=== PATIENT | female | born 1970 | race Caucasian/White ===

== ENCOUNTER → 2019-06-27 | Outpatient (CLI) | payer BC ==
[2019-06-27 11:22] LABS: Basophils % (A) 1 %; Eosinophils # (A) 0.3 k/uL (0-0.7); Eosinophils % (A) 5 %; HCT 35.6 % (34.0-46.0); HGB 11.7 gm/dL (11.4-16.0); Lymphocytes # (A) 1.6 k/uL (1.0-4.8); Lymphocytes % (A) 23 %; MCH 28.6 pg (25.0-35.0); MCV 86.7 fL (80.0-100.0); Mean Platelet Volume 6.4; Monocytes # (A) 0.6 k/uL (0-1.0); Monocytes % (A) 8 %; Neutrophils # (A) 4.4 k/uL (1.3-7.7); Neutrophils % (A) 62 %; Platelet Count 308 k/uL (150-450); RBC 4.11 m/uL (3.80-5.40); RDW 14.6 % (11.5-15.5); WBC 7.1 k/uL (3.8-10.6)
[2019-06-27 11:51] LABS: African American GFR (CKD) >90 (>60 ml/min/1.73 sqM); Anion Gap 7 mmol/L; Blood Urea Nitrogen 18 mg/dL (7-17); Carbon Dioxide 26 mmol/L (22-30); Chloride 106 mmol/L (98-107); Glucose 101 mg/dL (74-99); Potassium 4.2 mmol/L (3.5-5.1); Sodium 139 mmol/L (137-145)
== END | disposition home or self-care (01) ==
LOC: LABPAT 10:44
PROVIDERS: ATTEND Obstetrics & Gynecology
DX: Z01.812 Encounter for preprocedural laboratory examination (principal); D25.1 Intramural leiomyoma of uterus; N92.0 Excessive and frequent menstruation with regular cycle
CPT/HCPCS: 36415; 80051; 82565; 82947; 84520; 85025; 87086

== ENCOUNTER 2019-07-04 05:54 | Inpatient (IN) | payer BC ==
[2019-07-04] MEDS ORDERED: ONDANSETRON 4 MG/2 ML VIAL IVP ONE (06:02)
[2019-07-04] MEDS ORDERED: DEXAMETHASONE SOD PHOSPHATE 10 MG/ML 1 ML VIAL IV ONE (06:02)
[2019-07-04] MEDS ORDERED: MIDAZOLAM 2 MG/2 ML VIAL IV PRN (06:02)
[2019-07-04] MEDS ORDERED: SCOPOLAMINE 1.5MG/72HR PATCH TRANSDERM ONE (06:02)
[2019-07-04] MEDS ORDERED: HYDROmorphone 0.5 MG/0.5 ML SYRINGE IVP PRN ×2 (06:02→07:15)
[2019-07-04] MEDS ORDERED: LACTATED RINGERS 1,000 ML IV SCH ×2 (06:02→09:45)
[2019-07-04] MEDS ORDERED: LIDOCAINE 1% 20 ML VIAL (10MG/ML) FOR IV START INTRADERMA ONE (06:35)
[2019-07-04] MEDS ORDERED: MIDAZOLAM 2 MG/2 ML VIAL IV ONE (06:52)
[2019-07-04] MEDS ORDERED: fentaNYL (PF) 50 MCG/ML 2 ML AMP IV ONE (06:52)
[2019-07-04] MEDS ORDERED: ONDANSETRON 4 MG/2 ML VIAL IVP PRN (07:15)
[2019-07-04] MEDS ORDERED: NALOXONE 0.4 MG/ML 1 ML VIAL IV PRN (07:15)
[2019-07-04] MEDS ORDERED: KETOROLAC 30 MG/ML 1 ML VIAL IVP PRN (07:15)
[2019-07-04] MEDS ORDERED: diphenhydrAMINE 50 MG/ML 1 ML VIAL IVP PRN (07:15)
[2019-07-04] MEDS ORDERED: MORPHINE SULFATE (PF) 0.3 MG/0.3 ML SYR ONE (07:31)
[2019-07-04] MEDS ORDERED: PROPOFOL 10 MG/ML 20 ML VIAL IV ONE (07:31)
[2019-07-04] MEDS ORDERED: MIDAZOLAM 2 MG/2 ML VIAL ONE (07:31)
[2019-07-04] MEDS ORDERED: GLYCOPYRROLATE 0.2 MG/ML 2 ML VIAL ONE (07:31)
[2019-07-04] MEDS ORDERED: ROCURONIUM BROMIDE 10 MG/ML 10 ML VIAL IV ONE (07:31)
[2019-07-04] MEDS ORDERED: fentaNYL (PF) 50 MCG/ML 2 ML AMP ONE (07:31)
[2019-07-04] MEDS ORDERED: LIDOCAINE 1% INJ 10MG/ML (20 ML MDV) ONE (07:31)
[2019-07-04] MEDS ORDERED: PHENYLEPHRINE-0.9% NACL SYG 1 MG/10 ML SYRINGE ONE (07:31)
[2019-07-04] MEDS ORDERED: SUCCINYLCHOLINE CHLORIDE 100 MG/5 ML SYR IV ONE (07:31)
--- NOTE | 2019-07-04 07:45 | P.HPOB ---
History of Present Illness H&P Date: 07/04/19 Chief Complaint: Large symptomatic fibroid uterus The patient is a 48-year-old 3 para 2012 admitted with finding of a very large, approximately 16-18 week size irregular fibroid uterus. This has led to a fairly significant amount of menorrhagia. Ultrasound documents multiple large fibroids with one very large and present on the fundus. She was offered a number of different options for management including hysterectomy and ultimately has opted for hysterectomy which is indicated solely given the size of the uterus. She was offered Lupron in order to attempt to shrink the uterus and make it more amenable to a da Jose Raul approach but declined in favor proceeding with open total abdominal hysterectomy. She does have a history of 2 previous sections. Obstetrical history: 3 para 2012 with 2 deliveries at term and one early miscarriage method of contraception has been control pills. Gynecologic history: Unremarkable with no history of any infections to include STDs. Review of Systems Review of systems is confined to history of present illness. Past Medical History Past Medical History: No Reported History History of Any Multi-Drug Resistant Organisms: None Reported Past Surgical History: Section Past Anesthesia/Blood Transfusion Reactions: No Reported Reaction Past Psychological History: No Psychological Hx Reported Smoking Status: Current every day smoker Past Alcohol Use History: Rare Past Drug Use History: None Reported - Past Family History Mother Additional Family Medical History / Comment(s): multiple myeloma Father Family Medical History: Deep Vein Thrombosis (DVT), Pulmonary Embolus Additional Family Medical History / Comment(s): Medications and Allergies Home Medications Medication Instructions Recorded Confirmed Type No Known Home Medications 06/27/19 07/04/19 History Allergies Allergy/AdvReac Type Severity Reaction Status Date / Time No Known Allergies Allergy Verified 07/04/19 06:18 Exam Vital Signs Temp Pulse Resp BP Pulse Ox 07/04/19 07:08 72 16 104/55 99 07/04/19 06:20 98.4 F 70 18 133/60 98 Intake and Output 07/03/19 07/04/19 07/04/19 22:59 06:59 14:59 Intake Total 300 Balance 300 Intake: IV 300 Other: Weight 90.265 kg In general, this is a well-developed, well-nourished white female in no acute distress. Her heart has a regular rhythm and rate without murmur. Her lungs are clear to auscultation bilaterally in all bur[place]. Her abdomen is nondistended, has normal active bowel sounds, soft, nontender, and with a palpable mass approximately 3 cm below the umbilicus consistent with a large fibroid uterus. Her extremities without any cyanosis, clubbing, or edema and are nontender to palpation. Bimanual examination confirms the above findings with normal external genitalia and BUS with normal vaginal mucosa and cervix to palpation. Uterus is approximate 16-18 weeks in size, very irregular in shape and somewhat mobile. The adnexa are normal and nontender without mass bilaterally. Assessment and Plan (1) Menorrhagia Current Visit: Yes Status: Acute Code(s): N92.0 - EXCESSIVE AND FREQUENT MENSTRUATION WITH REGULAR CYCLE SNOMED Code(s): 864797491 (2) Fibroid uterus Current Visit: Yes Status: Acute Code(s): D25.9 - LEIOMYOMA OF UTERUS, UNSPECIFIED SNOMED Code(s): 56044920 Plan: Multiple options for treatment were offered to the patient. She initially tried tranexamic acid which failed. She opted for definitive treatment and declined trial of Lupron to shrink the uterus in favor proceeding with total abdominal hysterectomy. There is an competitions the procedure were thoroughly discussed including the risk for bleeding, bleeding requiring transfusion, infection, injury to local structures to include the bowel, bladder, and ureters. Special attention was paid to the bladder as she does have a history of 2 previous sections. I discussed the typical hospital and postoperative course is as well. She has understood all this and agreed to proceed. Her was present for the entire discussion. We are scheduled for total abdominal hysterectomy with bilateral salpingectomy.
[2019-07-04] MEDS ORDERED: Acetaminophen-Codeine 300-30mg TAB PO PRN (09:39)
[2019-07-04] MEDS ORDERED: METOCLOPRAMIDE 5 MG/ML 2 ML VIAL IVP PRN (09:39)
[2019-07-04] MEDS ORDERED: IBUPROFEN 600 MG TAB PO PRN (09:39)
[2019-07-04] MEDS ORDERED: SIMETHICONE 80 MG CHEWABLE PO PRN (09:39)
--- NOTE | 2019-07-04 09:39 | P.OP ---
Date of Procedure: 07/04/19 Preoperative Diagnosis: #1. Menorrhagia #2. Symptomatic fibroid uterus, 18 week size Postoperative Diagnosis: Same Procedure(s) Performed: #1. Total abdominal hysterectomy Anesthesia: EAN Surgeon: Osman Martinez Retail Consultant #1: Radha Watts Estimated Blood Loss (ml): 500 IV fluids (ml): 1,500 Urine output (ml): 45 Pathology: other (Uterus) Condition: stable Disposition: PACU Operative Findings: Preoperative pelvic and abdominal examination confirmed a large pelvic mass extending to just underneath the umbilicus which is consistent with a fibroid uterus. These findings are found intraoperatively as well. The ovaries and tubes were otherwise normal. The tubes were fairly densely invested to the ovary and therefore not taken during the case. Clear urine was noted throughout the entire case though there was a significant amount of scarring at the level of the bladder from previous sections. The entire fundus of the uterus was one large fibroid with several superimposed smaller fibroids noted as well, one prominently at the left angle of the uterus near the vasculature. Description of Procedure: The patient was prepped and draped in usual fashion after general endotracheal anesthesia was administered by the anesthesiologist. Given the size the uterus, vertical incision was made from just below the umbilicus to just above the pubic symphysis and extended into the abdominal cavity without difficulty. Washings were initially collected but then discarded when it was clear that the findings were benign. The uterus was noted to be mobile and could be elevated through the incision. A Iván O'Novoa self-retaining tractor was placed and the bowel packed from the wound. Initial attempts to isolate the round ligaments and utero-ovarian complex on each side were difficult with the upper retractor in place. As result, the upper retractor was removed and the uterus was elevated through the incision in order to better visualize the pedicles on each side. The round ligament on each side was clamped with a curved [place] clamp, cut, and sutured with a stitch of 0 Vicryl. The bladder peritoneum was developed to the midline. Up window was made in the posterior leaf of the peritoneum to isolate the utero-ovarian ligaments. Given the lack of space, the tube was left intact as it was closely invested to the ovary. A curved Valeriy Bonilla[place] clamp was placed across the utero-ovarian pedicle and the Candida clamp placed for retraction advanced into the opening created as well. The utero-ovarian pedicle was then cut, and suture-ligated with a transfixion stitch of 0 Vicryl followed by a free tie of 0 Vicryl. Similar operations were carried out on the left side without difficulty. Again the left fallopian tube was left intact leaving a very short portion of fallopian tube invested to the ovary on each side. The bladder peritoneum was developed across the midline and dense adhesions were taken down against the uterus very carefully with the Metzenbaum scissors. Ultimately we were able to reflect the bladder distally. This allowed skeletonization and placement of Valeriy [place] clamps across the uterine vasculature on each side where there were cut, and suture-ligated with a transfixion stitch of 0 Vicryl. Serial bites were taken with both curved and straight [place] clamps to further secure the uterine vasculature on each side each being cut and suture-ligated with a transfixion stitch of 0 Vicryl. Once the vessels had been controlled, the fundus of the uterus was divided from the cervix below it with cautery in order to create space. The cervical stump was grasped with Adrien clamps. Serial bites were further taken with straight [place] clamps to the angle of the cervix each being cut and suture-ligated with a transfixion stitch of 0 Vicryl. At the angle of the cervix, curved [place] clamps utilized to come underneath the cervix and across the top of the vagina allowing the remainder of the specimen to be epilated from the patient and sent for pathological diagnoses. The angles of the vagina were then secured with a transfixion stitch of 0 Vicryl. The intervening open vagina was closed with a running locking stitch of 0 Vicryl proceeding from angle to angle without difficulty. Small points of bleeding were noted along the cuff and made hemostatic with the Bovie. There was also some ongoing bleeding from the bladder dissection which was deemed a concern for bladder injury if cautery was to be used. As result, FloSeal was placed across the entire cuff and bladder dissection once the remainder of the hemostasis had been assured. Examination of all pedicles demonstrated excellent hemostasis. The ovaries were normal bilaterally again with a small portion of tube was still attached. Estimated blood loss for the case was approximate 500 mL. There were no complications. All sponge, instrument, and needle counts were correct. The patient tolerated the procedure well and proceeded to the recovery room in stable condition.
[2019-07-04 11:18] VITALS: BMI 33.1
[2019-07-04] MEDS: NICOTINE 14MG/24HR PATCH TRANSDERM SCH (12:03)
[2019-07-05 07:56] LABS: Basophils % (A) 0 %; Eosinophils # (A) 0.1 k/uL (0-0.7); Eosinophils % (A) 1 %; HCT 31.8 % (34.0-46.0); HGB 10.3 gm/dL (11.4-16.0); Lymphocytes # (A) 1.3 k/uL (1.0-4.8); Lymphocytes % (A) 13 %; MCH 28.5 pg (25.0-35.0); MCHC 32.3 g/dL (31.0-37.0); MCV 88.3 fL (80.0-100.0); Mean Platelet Volume 6.9; Monocytes # (A) 0.6 k/uL (0-1.0); Monocytes % (A) 6 %; Neutrophils # (A) 8.2 k/uL (1.3-7.7); Neutrophils % (A) 79 %; Platelet Count 278 k/uL (150-450); RDW 14.5 % (11.5-15.5); WBC 10.4 k/uL (3.8-10.6)
[2019-07-05] MEDS: Acetaminophen-Codeine 300-30mg TAB PO PRN ×2 (07:57→16:01)
[2019-07-05] MEDS: SENNOSIDES-DOCUSATE SODIUM 1 EACH TAB PO SCH ×2 (07:58→08:40)
[2019-07-05 08:27] VITALS: PULSE 70
--- NOTE | 2019-07-05 08:34 | P.DS ---
Providers Date of admission: 07/04/19 05:54 Expected date of discharge: 07/05/19 Attending physician: Osman Martinez Primary care physician: Stated None - Discharge Diagnosis(es) (1) Menorrhagia Current Visit: Yes Status: Acute (2) Fibroid uterus Current Visit: Yes Status: Acute Hospital Course: The patient is a 48-year-old 3 para 2012 admitted with findings of a very large and irregular fibroid uterus, approximately 18 weeks in size. This has been confirmed by ultrasound with one significantly large fibroid surrounded by a number of others. She has had fairly significant menorrhagia and was offered a number of different options including definitive therapy based solely on size alone. She was additionally offered use of Lupron in an attempt to shrink the uterus and make it more amenable to a less invasive procedure but ultimately opted to proceed with total abdominal hysterectomy. She was taken to the operating room where she underwent total abdominal hysterectomy in an uncomplicated fashion though it was significantly difficult secondary to significant scarring at the bladder and the bulk of the uterus itself making visualization and depth if occult. Was ultimately performed an incompetent fashion as noted above. Her postoperative course has been entirely unremarkable with vital signs remaining stable and her temperature was afebrile throughout. She was tolerating a regular diet by the morning of postoperative day #1 and was deemed stable for discharge by the late afternoon of postoperative day #1 after performing all normal activities of daily living. She was asked to return to the office in 1 week's time for staple removal as she has a vertical skin incision. She was then to also follow up at 6 weeks' time routinely. Discharge instructions included calling for any significantly increased vaginal bleeding, incisional complaints, GI or urinary complaints, fever, or anything else that concerned her. She was additionally instructed to have nothing in the vagina for at least 6 weeks time to include intercourse and to abstain from any heavy lifting over the same period of time. She was last instructed to do no driving until off of all pain medications or 2 weeks' time, whichever came first. She understood her instructions and agrees to follow up as noted above. Discharge medications included a prescription for Tylenol 3, 1-2 by mouth every 6 hours when necessary pain, #20 dispensed with no refills. She was otherwise to use ov [id number] analgesic pain medications as needed. She was additionally to continue with oral iron sulfate for mild postoperative anemia with discharge hemoglobin and hematocrit being noted at 10.3 and 31.8 respectively. Procedures: #1. Total abdominal hysterectomy Patient Condition at Discharge: Stable Plan - Discharge Summary Discharge Rx Participant: Yes New Discharge Prescriptions: No Action No Known Home Medications Discharge Medication List No Known Home Medications 06/27/19 [History] Follow up Appointment(s)/Referral(s): Osman Martinez MD [STAFF PHYSICIAN] - 1 Week Discharge Disposition: HOME SELF-CARE
[2019-07-05] MEDS: NICOTINE 14MG/24HR PATCH TRANSDERM SCH (09:21)
--- NOTE | 2019-07-05 11:22 | P.PN ---
Progress Note - Text Anesthesia POD 1649. Patient is status post RED under general endotracheal anesthesia with intra-thecal preservative free morphine 300 g. Minimal pruritus, excellent post-op analgesia, and no headache or other complications.
[2019-07-05 17:36] VITALS: BP 110/70; RESP 16; TEMP 98.3
== END 2019-07-05 18:10 | disposition home or self-care (01) | DRG 743 ==
LOC: 2ORMAIN 05:54 → 4FBP 09:57
PROVIDERS: ADMIT Obstetrics & Gynecology; ATTEND Obstetrics & Gynecology
PROC: 0UTC0ZZ Resection of Cervix, Open Approach (ICD-10-PCS; 2019-07-04)
PROC: 0UT90ZZ Resection of Uterus, Open Approach (ICD-10-PCS; principal; 2019-07-04 07:30)
DX: D25.9 Leiomyoma of uterus, unspecified (principal); D64.9 Anemia, unspecified; N92.0 Excessive and frequent menstruation with regular cycle; F17.210 Nicotine dependence, cigarettes, uncomplicated; Z71.6 Tobacco abuse counseling; Z98.891 History of uterine scar from previous surgery; Z80.7 Family history of other malignant neoplasms of lymphoid, hematopoietic and related tissues; Z83.2 Family history of diseases of the blood and blood-forming organs and certain disorders involving the immune mechanism
CPT/HCPCS: 81025; 85025; 86850; 86900; 86901; 88307

== ENCOUNTER → 2021-10-28 | Outpatient (CLI) | payer BC ==
[2021-10-28 08:55] VITALS: BP 136/80; PULSE 78; RESP 18; TEMP 97.8
--- NOTE | 2021-10-28 09:03 | P.PN ---
"Subjective Progress Note Date: 10/28/21 Principal diagnosis: A 50 yr old female as a referral from Dr. Canales with a history of severe and chronic neck pain secondary to cervical degenerative disc diseases, spondylolisthesis, DDD, spinal stenosis with facet arthropathy presents today for an evaluation. A shunt has been experiencing pain for 2 years in the middle aspect of her cervical spine with radiation of numbness down the left arm greater than the right. Pain level is 4 out of 10 in intensity, dull, achy, constant. 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 Pain is alleviated with medications, physical therapy ending July,, chiropractic treatments ending March,, home daily exercise regimen, use of the cervical soft collar, massage therapy and rest. Patient is currently on Motrin OTC and Flexeril from Dr. Canales Patient denies any side effects of the medication(s), denies excessive drowsiness or sleepiness, denies suicidal ideation and reports that the current pain medication is helping to control the pain and improve activities of daily living. Patient denies any motor or sensory deficits. Patient denies any fever or night sweats, denies any change in the bowel movements or urination. Physical Examination: -Constitutional: Cooperative. Not in acute distress . -HEENT: Neck is supple. No lymphadenopathy. No thyromegaly. Normal thyroid size. Eyes: No ptosis , no icterus, no photophobia. ENT: No auditory deficits. Normal oropharynx. No Thrush. - Respiratory: Chest clear to auscultations bilaterally. No wheezing. No rhonchi. - Cardiovascular: Regular rate and rhythm. S1 / S2 , no S3 , no S4. - Gastrointestinal: Abdomen soft no tenderness. Bowel sounds positive in all four quadrants. No organomegaly. - Genitourinary: Deferred. - Neurologic: Cranial nerve II to XII intact. No focal neurological deficits. - Psychatric: Alert & oriented x 3. Matching mood & appropriate affect. Judgment and insight intact. - Lymphatic: No Lymphadenopathy. - Musculoskeletal: Cervical spine: Muscle bulk/ tone/ strength in the bilateral upper extremities normal. Vertebral body tenderness over C5, C6 Spurling test positive Distraction test positive Facet loading test cervical area positive. Tenderness over the right superior, middle aspect of the trapezius Lumbar spine: Motor bulk/ tone/ strength lower extremities , thigh and legs : 5/5 Deep tendon reflexes : Normal Knee Jerk. Normal Ankle Jerk . Vertebral body tenderness to palpation over Lumbar Facet Loading Test positive Straight Leg Raise: positive at 30 degrees right side/ left side Gaenslen's Test positive Sacral spine : Severe tenderness over the Sacroiliac joint: right side / left side Range of motion: Flexion of the lumbar spine <60 degrees Range of motion: Extension of the lumbar spine <20 degrees Gaenslen's Test positive Ralph test: positive right side / left side Assessment and plan: Chronic neck pain secondary to | degenerative disc disease , spondylosis with facet arthropathy without myelopathy Recommendation of ESTRELLITA C5-C6 and right TPI of the superior and middle aspect of the trapezius Denies anticoagulants use. Denies history of diabetes. All patient questions answered MAPS reviewed and it was appropriate. I have spent 31 minutes on patient care today. Dr Nina was available by phone for the evaluation of this patient. The time was used to review the medical records including relevant urine studies and Prescription history (MAPs), review of the available imaging, evaluation and examination of the patient, coordination of care with the medical staff and if applicable referring physicians, as well as creation of the medical record Objective - Vital Signs Vital signs: Vital Signs Temp 97.8 F 10/28/21 08:49 Pulse 78 10/28/21 08:49 Resp 18 10/28/21 08:49 BP 136/80 10/28/21 08:49 Pulse Ox 99 10/28/21 08:49 PQRS Measure Charge Sheet Mode of Arrival: Ambulatory - Pain Location Neck Non-Pharmacological Interventions: Chiropractic Treatment, Home Exercise, Inactivity, Massage, Physical Therapy, Position/Reposition, Stretching Pharmacological Interventions: PRN Medication PQRS Narrative: Smoking Status Current every day smoker Blood Pressure 136/80 Pain Intensity [Lower Back] 4 Pain Intensity [Neck] 4 Scale Used Numeric (1 - 10) Hx Alcohol Use (MH) Yes: Rare Home Medications: Ambulatory Orders Cyclobenzaprine [Flexeril] 5 mg PO QAM 10/25/21 Ibuprofen [Motrin Ib] 400 mg PO DIRECTED PRN 10/25/21"
== END ==
LOC: PNWHC3 08:08
PROVIDERS: ATTEND Physician Assistant Medical
DX: G89.29 Other chronic pain (principal); M50.30 Other cervical disc degeneration, unspecified cervical region; M47.812 Spondylosis without myelopathy or radiculopathy, cervical region; F17.200 Nicotine dependence, unspecified, uncomplicated
CPT/HCPCS: 99211

== ENCOUNTER 2021-12-05 09:49 | Day surgery (SDC) | payer BC ==
[2021-12-04 08:55] VITALS: BMI 34.7
[2021-12-05] MEDS ORDERED: LACTATED RINGERS 1,000 ML IV SCH (09:59)
[2021-12-05] MEDS ORDERED: LIDOCAINE 1% (10MG/ML) FOR IV START INTRADERMA PRN (09:59)
[2021-12-05 10:05] VITALS: TEMP 98.2
[2021-12-05] MEDS ORDERED: LACTATED RINGERS 1,000 ML IV ONE (10:07)
[2021-12-05] MEDS ORDERED: IOPAMIDOL M200 10 ML VIAL ONE (11:41)
[2021-12-05] MEDS ORDERED: MIDAZOLAM 2 MG/2 ML VIAL ONE (11:41)
[2021-12-05] MEDS ORDERED: DEXAMETHASONE SOD PHOSPHATE 10 MG/ML 1 ML VIAL ONE (11:41)
[2021-12-05] MEDS ORDERED: fentaNYL (PF) 50 MCG/ML 2 ML AMP ONE (11:41)
--- NOTE | 2021-12-05 11:58 | P.PCN ---
Date of Procedure: 12/05/21 Procedure(s) Performed: . PROCEDURE 1. Cervical epidural steroid injection under fluoroscopic guidance, C5-6 (fluoroscopy images available in the radiology department ) 2. Cervical epidurogram. PREOPERATIVE DIAGNOSIS: 1- Cervical Degenerative Disc Diseases 2- Cervical myofascial pain syndrome 3-cervical spondylosis with cervical Facet arthropathy without myelopathy POst-op DIAGNOSIS: : 1- Cervical Degenerative Disc Diseases , 2- Cervical myofascial pain syndrome 3-,cervical spondylosis with cervical Facet arthropathy without myelopathy ANESTHESIA: Local anesthesia with lidocaine 1 % , and moderate sedation, with Versed 2 mg and Fentanyl 50 mcg. EBL 0 PROCEDURE INDICATION: The patient with neck pain and radiculitis unresponsive to conservative treatment consents for procedure. PROCEDURE DESCRIPTION / TECHNIQUE: The patient was seen and identified in the preoperative area. Risks, benefits, complications, including but not limited to infections ,bleeding , allergic reactions to the medications ,and not complete pain releife, and alternatives were discussed with the patient, the patient agreed to proceed with the procedure and signed the consent. Patient was taken to the OR and time out was completed. The patient was placed in the prone position on the procedure table. A pillow was placed under the patients chest to increase the cervical interlaminar space. The cervical area was prepped and draped in the usual sterile fashion. Vital signs were closely monitored during the procedure. Conscious sedation was used during the procedure to decrease patients anxiety. Using anterior-posterior fluoroscopy, the C5-6 interlaminar space was identified and the skin over this site was marked and then infiltrated with 1% lidocaine subcutaneously. Subsequently, a 20-gauge 3-1/2-inch Tuohy epidural needle was inserted and advanced toward the epidural space by means of the ``hanging-drop technique and guided by AP and lateral fluoroscopy. The correct needle position in the epidural space was verified with the injection of 2 mL of the water soluble contrast dye [id number]-200 and observing an excellent epidurogram with the epidural spread of the dye, after negative aspiration for blood and CSF and in the absence of paresthesias. then, mixture containing 20 mg Dexamethasone and 2 ml of preservative-free normal saline injected and a washout of epidurogram was seen. Needle was withdrawn intact, skin was cleansed, and bandages were applied. Complications= none. Disposition= patient was placed in supine position and transferred to the recovery room area in stable condition and there was no evidence of upper or lower extremity motor or sensory deficit after the procedure patient was discharged from recovery room after discharge criteria met and home discharge instructions was given by the staff and patient will follow with the pain clinic in 2-4 weeks note= patient had a lot of muscle spasm in the cervical paraspinal muscles, in the future she could benefit from trigger point injection plus cervical epidural steroid injection, which can be done at the same time.
[2021-12-05] MEDS ORDERED: IV FLUID CONTINUATION 1,000 ML IV ONE ×2 (12:05)
[2021-12-05 12:08] VITALS: BP 133/83; PULSE 72; RESP 16
--- NOTE | 2021-12-05 12:40 | FL ---
Fluoroscopy HISTORY: Pain 5 seconds fluoroscopy time supplied to the referring clinician. 1 intraoperative C-arm images docume nt the procedure. See dictated report from anesthesia.
== END 2021-12-05 12:36 | disposition home or self-care (01) ==
LOC: ORPAIN 09:49
PROVIDERS: ATTEND Specialist
DX: M50.122 Cervical disc disorder at C5-C6 level with radiculopathy (principal); M79.18 Myalgia, other site; M47.22 Other spondylosis with radiculopathy, cervical region
CPT/HCPCS: 62321; J2250; J1100; J3010; Q9966

== ENCOUNTER → 2021-12-26 | Outpatient (CLI) | payer BC ==
--- NOTE | 2021-12-26 09:03 | P.PN ---
Subjective Progress Note Date: 12/26/21 Principal diagnosis: A 51 yr old female with a history of severe and chronic neck pain secondary to cervical degenerative disc diseases and spondylosis with facet arthropathy presents today for evaluation status post ESTRELLITA C5-C6 #2. She states she experienced 30% pain relief status post procedure. Pain level is localized in the mid to lower aspects of her cervical spine for the last year, 5 out of 10 in intensity, dull, achy in the cervical spine area with radiation of tingling occasionally to the left upper extremity. Pain escalates as high as 10 out of 10 with extension, rotation and lateral flexion. 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 Pain is alleviated with medications, injections, heat, physical therapy in 2020 which provided minimal relief, chiropractic treatments in July 2021, daily home stretching regimen, massage therapy in July 2021 and rest. Interventional pain procedures completed include ESTRELLITA C5-C6 #1 Patient is currently on ibuprofen, Flexeril. Patient denies any side effects of the medication(s), denies excessive drowsiness or sleepiness, denies suicidal ideation and reports that the current pain medication is helping to control the pain and improve activities of daily living. Patient denies any motor or sensory deficits. Patient denies any fever or night sweats, denies any change in the bowel movements or urination. Physical Examination: -Constitutional: Cooperative. Not in acute distress . -HEENT: Neck is supple. No lymphadenopathy. No thyromegaly. Normal thyroid size. Eyes: No ptosis , no icterus, no photophobia. ENT: No auditory deficits. Normal oropharynx. No Thrush. - Respiratory: Chest clear to auscultations bilaterally. No wheezing. No rhonchi. - Cardiovascular: Regular rate and rhythm. S1 / S2 , no S3 , no S4. - Gastrointestinal: Abdomen soft no tenderness. Bowel sounds positive in all four quadrants. No organomegaly. - Genitourinary: Deferred. - Neurologic: Cranial nerve II to XII intact. No focal neurological deficits. - Psychatric: Alert & oriented x 3. Matching mood & appropriate affect. Judgment and insight intact. - Lymphatic: No Lymphadenopathy. - Musculoskeletal: Cervical spine: Muscle bulk/ tone/ strength in the bilateral upper extremities normal. Vertebral body tenderness over C5, C6 Spurling test positive Facet loading test cervical area positive. Lumbar spine: Motor bulk/ tone/ strength lower extremities , thigh and legs : 5/5 Deep tendon reflexes : Normal Knee Jerk. Normal Ankle Jerk . Vertebral body tenderness to palpation over Lumbar Facet Loading Test positive Straight Leg Raise: positive at 30 degrees right side/ left side Gaenslen's Test positive Sacral spine : Severe tenderness over the Sacroiliac joint: right side / left side Range of motion: Flexion of the lumbar spine <60 degrees Range of motion: Extension of the lumbar spine <20 degrees Gaenslen's Test positive Ralph test: positive right side / left side Assessment and plan: Chronic neck pain secondary to cervical degenerative disc disease , spondylosis with facet arthropathy without myelopathy Recommendation of ESTRELLITA C5-C6 #2 with TPIs of BL C3-C7. Risks, benefits of procedure discussed and patient verbalized understanding. Denies anticoagulant use are medical history of diabetes. All patient questions answered MAPS reviewed and it was appropriate. I have spent 31 minutes on patient care today. Dr Nina was available by phone for the evaluation of this patient. The time was used to review the medical records including relevant urine studies and Prescription history (MAPs), review of the available imaging, evaluation and examination of the patient, coordination of care with the medical staff and if applicable referring physicians, as well as creation of the medical record PQRS Measure Charge Sheet PQRS Narrative: Smoking Status Current every day smoker Hx Alcohol Use (MH) Yes: Rare Home Medications: Ambulatory Orders Cyclobenzaprine [Flexeril] 5 mg PO QAM 10/25/21 Ibuprofen [Motrin Ib] 400 mg PO DIRECTED PRN 10/25/21 Famotidine [Pepcid] 20 mg PO DAILY PRN 12/04/21
[2021-12-26 09:14] VITALS: BP 150/88; PULSE 77; RESP 18; TEMP 97.8
== END ==
LOC: PNWHC3 08:17
PROVIDERS: ATTEND Specialist
DX: M50.30 Other cervical disc degeneration, unspecified cervical region (principal); M47.812 Spondylosis without myelopathy or radiculopathy, cervical region; G89.29 Other chronic pain; F17.200 Nicotine dependence, unspecified, uncomplicated
CPT/HCPCS: 99211

== ENCOUNTER 2022-01-28 11:40 | Day surgery (SDC) | payer BC ==
[2022-01-24 11:55] VITALS: BMI 33.7
[~2022-01-28 11:40] MED LIST: LACTATED RINGERS 1,000 ML IV SCH; LIDOCAINE 1% (10MG/ML) FOR IV START INTRADERMA PRN
[2022-01-28 12:14] VITALS: RESP 18; TEMP 97.8
[2022-01-28] MEDS ORDERED: LACTATED RINGERS 1,000 ML IV ONE (12:22)
[2022-01-28 12:23] LABS: Glucose,Whole Blood 92 mg/dL (75-99)
[2022-01-28] MEDS ORDERED: fentaNYL (PF) 50 MCG/ML 2 ML AMP ONE (13:02)
[2022-01-28] MEDS ORDERED: DEXAMETHASONE SOD PHOSPHATE 10 MG/ML 1 ML VIAL ONE (13:02)
[2022-01-28] MEDS ORDERED: IOPAMIDOL M200 10 ML VIAL ONE (13:02)
[2022-01-28] MEDS ORDERED: ROPIVACAINE 5MG/ML 20ML VIAL ONE (13:02)
[2022-01-28] MEDS ORDERED: MIDAZOLAM 2 MG/2 ML VIAL ONE (13:02)
[2022-01-28] MEDS ORDERED: IV FLUID CONTINUATION 1,000 ML IV ONE (13:24)
--- NOTE | 2022-01-28 13:28 | P.PCN ---
Date of Procedure: 01/28/22 Procedure(s) Performed: PROCEDURE 1. Cervical epidural steroid injection under fluoroscopic guidance, C5-6 (fluoroscopy images available in the radiology department ) 2. Cervical epidurogram. 3. The point injection cervical paraspinal muscles total of 6 trigger point injected 3 on the right side and cervical paraspinal muscles and 3 on the left side cervical paraspinal muscles. PREOPERATIVE DIAGNOSIS: 1- Cervical Degenerative Disc Diseases 2- Cervical myofascial pain syndrome 3-cervical spondylosis with cervical Facet arthropathy without myelopathy . POst-op DIAGNOSIS: : 1- Cervical Degenerative Disc Diseases , 2- Cervical myofascial pain syndrome 3-,cervical spondylosis with cervical Facet arthropathy without myelopathy ANESTHESIA: Local anesthesia with lidocaine 1 % , and moderate sedation, with Versed 2 mg and Fentanyl 100 mcg. EBL 0 PROCEDURE INDICATION: The patient with neck pain and radiculitis unresponsive to conservative treatment consents for procedure. PROCEDURE DESCRIPTION / TECHNIQUE: The patient was seen and identified in the preoperative area. Risks, benefits, complications, including but not limited to infections ,bleeding , allergic reactions to the medications ,and not complete pain releife, and alternatives were discussed with the patient, the patient agreed to proceed with the procedure and signed the consent. Patient was taken to the OR and time out was completed. The patient was placed in the prone position on the procedure table. A pillow was placed under the patients chest to increase the cervical interlaminar space. The cervical area was prepped and draped in the usual sterile fashion. Vital signs were closely monitored during the procedure. Conscious sedation was used during the procedure to decrease patients anxiety. Using anterior-posterior fluoroscopy, the C5-6 interlaminar space was identified and the skin over this site was marked and then infiltrated with 1% lidocaine subcutaneously. Subsequently, a 20-gauge 3-1/2-inch Tuohy epidural needle was inserted and advanced toward the epidural space by means of the ``hanging-drop technique and guided by AP and lateral fluoroscopy. The correct needle position in the epidural space was verified with the injection of 2 mL of the water soluble contrast dye Isovue-200 and observing an excellent epidurogram with the epidural spread of the dye, after negative aspiration for blood and CSF and in the absence of paresthesias. then, mixture containing 20 mg Dexamethasone and 2 ml of preservative-free normal saline injected and a washout of epidurogram was seen. Needle was withdrawn intact, Then after that the trigger point injection done and sterile technique ,3 trigger point injected on the right side cervical paraspinal muscles, and 3 on the left side cervical paraspinal muscles, using 25-gauge needle ,each of the tr igger point injected with ropivacaine 0.5% 2 mL, injection them after negative aspiration and there was no paresthesia during the injection patient tolerated the procedure well without any complications Complications= none. Disposition= patient was placed in supine position and transferred to the recovery room area in stable condition and there was no evidence of upper or lower extremity motor or sensory deficit after the procedure patient was discharged from recovery room after discharge criteria met and home discharge instructions was given by the staff and patient will follow with the pain clinic in 2-4 weeks
--- NOTE | 2022-01-28 13:31 | FL ---
Fluoroscopy HISTORY: Pain 3 seconds fluoroscopy time supplied to the referring clinician. 1 intraoperative C-arm images docume nt the procedure. See dictated report from anesthesia.
[2022-01-28 13:44] VITALS: BP 114/74; PULSE 63
== END 2022-01-28 13:55 | disposition home or self-care (01) ==
LOC: ORPAIN 11:40
PROVIDERS: ATTEND Specialist
DX: M47.812 Spondylosis without myelopathy or radiculopathy, cervical region (principal)
CPT/HCPCS: 20553; 62321; J2250; J1100; J3010; Q9966; J2795; 99152

== ENCOUNTER → 2022-02-19 | Outpatient (CLI) | payer BC ==
[2022-02-19 08:50] VITALS: BP 144/89; PULSE 77; RESP 18; TEMP 98.7
--- NOTE | 2022-02-19 08:58 | P.PAINPG ---
PQRS Measure Charge Sheet Comment: A 51 yr old female with a history of severe and chronic neck pain secondary to degenerative disc diseases and spondylosis with facet arthropathy presents today for evaluation status post ESTRELLITA C5-C6 #2. She states she experienced 50% pain relief and 80% relief from numbness s/p procedure. Pain level is currently at 3/10 in intensity. Pain is constant, dull/ achy . Pain is provoked by bending, lifting and walking. Pain is alleviated with PT in July 2021 x 6 weeks, heat, medications (motrin, flexeril), topicals, laying supine. She is complaining of lumbar pain today, 5/10 in intensity, dull & achy in the mid- lower aspects of her lumbar spine without radiation of pain . Pain is provoked w bending and lifting. Pain is relieved with the aforementioned palliating home treatments. Interventional pain procedures completed include ESTRELLITA C5-C6 x 2 Patient is currently on Motrin OTC, Flexeril prn. Patient denies any side effects of the medication(s), denies excessive drowsiness or sleepiness, denies suicidal ideation and reports that the current pain medication is helping to control the pain and improve activities of daily living. Patient denies any motor or sensory deficits. Patient denies any fever or night sweats, denies any change in the bowel movements or urination. Physical Examination: -Constitutional: Cooperative. Not in acute distress . -HEENT: Neck is supple. No lymphadenopathy. No thyromegaly. Normal thyroid size. Eyes: No ptosis , no icterus, no photophobia. ENT: No auditory deficits. Normal oropharynx. No Thrush. - Respiratory: Chest clear to auscultations bilaterally. No wheezing. No rhonchi. - Cardiovascular: Regular rate and rhythm. S1 / S2 , no S3 , no S4. - Gastrointestinal: Abdomen soft no tenderness. Bowel sounds positive in all four quadrants. No organomegaly. - Genitourinary: Deferred. - Neurologic: Cranial nerve II to XII intact. No focal neurological deficits. - Psychatric: Alert & oriented x 3. Matching mood & appropriate affect. Judgment and insight intact. - Lymphatic: No Lymphadenopathy. - Musculoskeletal: Cervical spine: Muscle bulk/ tone/ strength in the bilateral upper extremities normal Vertebral body tenderness to palpation over C5, C6 Distraction test positive bilaterally Facet loading test positive Thoracic spine Muscle bulk / tone/ strength in the bilateral paraspinal muscles normal Vertebral body tender to palpation over Facet loading test positive Lumbar spine: Motor bulk/ tone/ strength lower extremities , thigh and legs : 5/5 Deep tendon reflexes : Normal Knee Jerk. Normal Ankle Jerk . Vertebral body tenderness to palpation over Lumbar Facet Loading Test positive Straight Leg Raise: positive at 30 degrees right side/ left side Gaenslen's Test positive Sacral spine : Severe tenderness over the Sacroiliac joint: right side / left side Range of motion: Flexion of the lumbar spine <60 degrees Range of motion: Extension of the lumbar spine <20 degrees Gaenslen's Test positive Eliceo's Test positive Ralph test: positive right side / left side Thigh Thrust Test Sacral Thrust Test Assessment and plan: Chronic low back pain secondary to lumbar degenerative disc disease , lumbar spondylosis with facet arthropathy without myelopathy Pt received satisfactory results with ESTRELLITA x 2. She is disinterested in additional cervical treatments at this time. She is looking forward to a February 2022 interview for a home based job which is not as physically demanding as the position she holds currently. Her lumbar spine feels worse and has an x- ray from [facility] from November 2020. Will obtain records and follow up within 2- 4 weeks. All patient questions answered MAPS reviewed and it was appropriate. I have spent 31 minutes on patient care today. Dr Nina was available by phone for the evaluation of this patient. The time was used to review the medical records including relevant urine studies and Prescription history (MAPs), review of the available imaging, evaluation and examination of the patient, coordination of care with the medical staff and if applicable referring physicians, as well as creation of the medical record PQRS Narrative: Smoking Status Current every day smoker Hx Alcohol Use (MH) Yes: Rare Home Medications: Ambulatory Orders Cyclobenzaprine [Flexeril] 5 mg PO QAM 10/25/21 Ibuprofen [Motrin Ib] 400 mg PO DIRECTED PRN 10/25/21 Famotidine [Pepcid] 20 mg PO DAILY PRN 12/04/21 Controlled Substance Measures - Controlled Substance Measures Is patient prescribed a controlled substance at discharge?: No
== END ==
LOC: PNWHC3 08:22
PROVIDERS: ATTEND Specialist
DX: M46.82 Other specified inflammatory spondylopathies, cervical region (principal); M47.816 Spondylosis without myelopathy or radiculopathy, lumbar region; M51.36 Other intervertebral disc degeneration, lumbar region; G89.29 Other chronic pain; F17.200 Nicotine dependence, unspecified, uncomplicated
CPT/HCPCS: 99211

== ENCOUNTER → 2022-03-05 | Outpatient (CLI) | payer BC ==
[2022-03-05 12:33] VITALS: BP 137/86; PULSE 66; RESP 18; TEMP 98.4
--- NOTE | 2022-03-05 12:47 | P.PAINPG ---
Objective - Vital Signs Vital signs: Intake & Output 03/04/22 03/05/22 03/05/22 18:59 06:59 18:59 Weight 89.811 kg PQRS Measure Charge Sheet Comment: A 51 yr old female with a history of severe and chronic neck pain secondary to degenerative disc diseases and spondylosis with facet arthropathy presents today for evaluation for cervical pian. Pain level is currently at 4/10 in intensity, constant, achy in character with radiation of pain towards the head causing headaches and towards the LUE causing numbness. Pain is provoked by overactivity and rotation. Pain is alleviated with medications (ibuprofen, Flexeril), topicals, injections in the past, heat, physical therapy in July 2021 for 3 weeks but discontinued due to the [id number] cost, laying supine, repositioning and rest.. Interventional pain procedures completed include ESTRELLITA C5-C6 x 2, TPIs. Patient is currently on Ibuprofen, Flexeril. Patient denies any side effects of the medication(s), denies excessive drowsiness or sleepiness, denies suicidal ideation and reports that the current pain medication is helping to control the pain and improve activities of daily living. Patient denies any motor or sensory deficits. Patient denies any fever or night sweats, denies any change in the bowel movements or urination. Physical Examination: -Constitutional: Cooperative. Not in acute distress . - Neurologic: Cranial nerve II to XII intact. No focal neurological deficits. - Psychatric: Alert & oriented x 3. Matching mood & appropriate affect. Judgment and insight intact. - Musculoskeletal: Cervical spine: Muscle bulk/ tone/ strength in the bilateral upper extremities normal Vertebral body tenderness to palpation over Spurling test positive Distraction test positive Facet loading test positive over L C5-C6, C6-C7 Thoracic spine Muscle bulk / tone/ strength in the bilateral paraspinal muscles normal Vertebral body tender to palpation over Facet loading test positive Lumbar spine: Motor bulk/ tone/ strength lower extremities , thigh and legs : 5/5 Deep tendon reflexes : Normal Knee Jerk. Normal Ankle Jerk . Vertebral body tenderness to palpation over Lumbar Facet Loading Test positive Straight Leg Raise: positive at 30 degrees right side/ left side Gaenslen's Test positive Sacral spine : Severe tenderness over the Sacroiliac joint: right side / left side Range of motion: Flexion of the lumbar spine <60 degrees Range of motion: Extension of the lumbar spine <20 degrees Gaenslen's Test positive Eliceo's Test positive Ralph test: positive right side / left side Thigh Thrust Test Sacral Thrust Test Assessment and plan: Chronic low back pain secondary to lumbar degenerative disc disease , lumbar spondylosis with facet arthropathy without myelopathy Recommendation of L FB of the MB C5-C6, C6-C7. May need a series of injections, up until RFA for optimal pain relief. Risks, benefits of procedure discussed and pt verbalized understanding. Denies anticoagulant use or medical history of diabetes. All patient questions answered MAPS reviewed and it was appropriate. Prescription for Diclofenac gel 1% BID disp 1 tube w 1 refill I have spent less than 30 minutes on patient care today. Dr Nina was available by phone for the evaluation of this patient. The time was used to review the medical records including relevant urine studies and Prescription history (MAPs), review of the available imaging, evaluation and examination of the patient, coordination of care with the medical staff and if applicable referring physicians, as well as creation of the medical record - Pain Location Bilateral Lower Neck Non-Pharmacological Interventions: Heat, Ice, Inactivity, Massage, Physical Therapy Pharmacological Interventions: Epidural, Medication, Topical Medication PQRS Narrative: Smoking Status Current every day smoker Hx Alcohol Use (MH) Yes: Rare Home Medications: Ambulatory Orders Cyclobenzaprine [Flexeril] 5 mg PO QAM 10/25/21 Ibuprofen [Motrin Ib] 400 mg PO DIRECTED PRN 10/25/21 Famotidine [Pepcid] 20 mg PO DAILY PRN 12/04/21 Diclofenac Sodium Gel [Voltaren Gel] 100 gm TOPICAL BID 30 Days #100 g 03/05/22 Controlled Substance Measures - Controlled Substance Measures Is patient prescribed a controlled substance at discharge?: No
== END ==
LOC: PNWHC3 11:41
PROVIDERS: ATTEND Specialist
DX: M51.36 Other intervertebral disc degeneration, lumbar region (principal); M47.816 Spondylosis without myelopathy or radiculopathy, lumbar region; G89.29 Other chronic pain; F17.200 Nicotine dependence, unspecified, uncomplicated
CPT/HCPCS: 99211

== ENCOUNTER → 2022-04-30 | Outpatient (CLI) | payer BC ==
[2022-04-30 09:10] VITALS: BP 123/77; PULSE 80; RESP 18; TEMP 97.8
--- NOTE | 2022-04-30 15:01 | P.PAINPG ---
Objective - Vital Signs Vital signs: Intake & Output 04/29/22 04/30/22 04/30/22 18:59 06:59 18:59 Weight 87.997 kg PQRS Measure Charge Sheet Comment: A 51 yr old female with a history of severe and chronic neck pain secondary to cervical degenerative disc diseases and spondylosis with facet arthropathy presents today for L MBB C5-C6, C6-C7 #1. Pt states she experienced 100% pain relief x 4 hrs s/p procedure. Pain level is currently at 6/10 in intensity, con stant, localized in L lower neck, achy in character w shooting towards L shoulder and L fingers causing numbness occasionally. Pain is provoked as high as 8/10 by overhead reaching/ lifting. Pain is alleviated with PT x 6 wks in Jul 2021, massage therapy x 1 in May 2021, chiropractic treatments twice last in May 2021, heat, medications (flexeril, ibuprofen, voltaren gel), laying supine, repositioning and rest. Interventional pain procedures completed include L MBB C5-C6, C6-C7 x1 Patient is currently on Flexeril, Ibuprofen, Voltaren gel Patient denies any side effects of the medication(s), denies excessive drowsiness or sleepiness, denies suicidal ideation and reports that the current pain medication is helping to control the pain and improve activities of daily living. Patient denies any motor or sensory deficits. Patient denies any fever or night sweats, denies any change in the bowel movements or urination. Physical Examination: -Constitutional: Cooperative. Not in acute distress . - Neurologic: Cranial nerve II to XII intact. No focal neurological deficits. - Psychatric: Alert & oriented x 3. Matching mood & appropriate affect. Judgment and insight intact. - Musculoskeletal: Cervical spine: Muscle bulk/ tone/ strength in the bilateral upper extremities normal Vertebral body tenderness to palpation over Spurling test positive over L C5-C6, C6-C7 Distraction test positive Facet loading test positive Thoracic spine Muscle bulk / tone/ strength in the bilateral paraspinal muscles normal Vertebral body tender to palpation over Facet loading test positive Lumbar spine: Motor bulk/ tone/ strength lower extremities , thigh and legs : 5/5 Deep tendon reflexes : Normal Knee Jerk. Normal Ankle Jerk . Vertebral body tenderness to palpation over Lumbar Facet Loading Test positive Straight Leg Raise: positive at 30 degrees right side/ left side Gaenslen's Test positive Sacral spine : Severe tenderness over the Sacroiliac joint: right side / left side Range of motion: Flexion of the lumbar spine <60 degrees Range of motion: Extension of the lumbar spine <20 degrees Gaenslen's Test positive Eliceo's Test positive Ralph test: positive right side / left side Thigh Thrust Test Sacral Thrust Test Assessment and plan: Chronic neck pain secondary to cervical degenerative disc disease , spondylosis with facet arthropathy without myelopathy Recommendation of L MBB C5-C6, C6-C7 #2. May need a series of injections, up until RFA, for optimal pain relief. Risks, benefits of procedure discussed and pt verbalized understanding. Denies anticoagulant use or medical history of diabetes. All patient questions answered MAPS reviewed and it was appropriate. I have spent less than 30 minutes on patient care today. Dr Nina was available by phone for the evaluation of this patient. The time was used to review the medical records including relevant urine studies and Prescription history (MAPs), review of the available imaging, evaluation and examination of the patient, coordination of care with the medical staff and if applicable referring physicians, as well as creation of the medical record PQRS Narrative: Smoking Status Current every day smoker Hx Alcohol Use (MH) Yes: Rare Home Medications: Ambulatory Orders Cyclobenzaprine [Flexeril] 5 mg PO QAM PRN 10/25/21 Ibuprofen [Motrin Ib] 400 mg PO DIRECTED PRN 10/25/21 Famotidine [Pepcid] 20 mg PO DAILY PRN 12/04/21 Diclofenac Sodium Gel [Voltaren Gel] 100 gm TOPICAL BID 30 Days #100 g 03/05/22 Controlled Substance Measures - Controlled Substance Measures Is patient prescribed a controlled substance at discharge?: No
== END ==
LOC: PNWHC3 08:37
PROVIDERS: ATTEND Specialist
DX: M50.30 Other cervical disc degeneration, unspecified cervical region (principal); M47.812 Spondylosis without myelopathy or radiculopathy, cervical region; G89.29 Other chronic pain; F17.200 Nicotine dependence, unspecified, uncomplicated
CPT/HCPCS: 99211

== ENCOUNTER 2022-05-30 06:32 | Day surgery (SDC) | payer BC ==
[2022-05-29 10:09] VITALS: BMI 32.3
[2022-05-30] MEDS ORDERED: LACTATED RINGERS 1,000 ML IV SCH (06:50)
[2022-05-30] MEDS ORDERED: LIDOCAINE 1% (10MG/ML) FOR IV START INTRADERMA PRN (06:50)
[2022-05-30 06:55] VITALS: RESP 18; TEMP 96.9
[2022-05-30] MEDS ORDERED: ROPIVACAINE 5 MG/ML 20 ML AMPULE ONE (07:32)
[2022-05-30] MEDS ORDERED: MIDAZOLAM 2 MG/2 ML VIAL ONE (07:32)
[2022-05-30] MEDS ORDERED: methylPREDNISolone ACETATE 40 MG/ML 1 ML VIAL ONE (07:32)
--- NOTE | 2022-05-30 07:54 | P.PCN ---
Date of Procedure: 05/30/22 Procedure(s) Performed: PREOPERATIVE DIAGNOSIS: 1-Cervical Spondylosis with Facet Arthropathy.without myelopathy. 2-cervical degenerative disc disease POSTOPERATIVE DIAGNOSIS: Same as preoperative diagnosis. PROCEDURES: Diagnostic Left , C5 , C6 , C7 medial branch blocks, with fluor oscopic guidance (fluoroscopy images available in radiology department ) ( to target the facet joint at Left C5- 6 , C6-7 ) ANESTHESIA: Monitored anesthesia care as per anesthesia department . EBL: Minimal PROCEDURE INDICATION: The patient with neck pain secondary to cervical arthropathy unresponsive to more conservative treatments. PROCEDURE DESCRIPTION / TECHNIQUE: The patient was seen and identified in the preoperative area. Risks, benefits, complications, and alternatives were discussed with the patient, the patient agreed to proceed with the procedure and signed the consent. IV was started. Vital signs remained stable throughout the procedure. Patient was taken to the OR and time out was completed. The patient was placed in the Lateral position ( left side up )on the procedure table. The cervical area was prepped and draped in the usual sterile fashion. Critical pause was taken. Vital signs were closely monitored during the procedure. Conscious sedation was used during the procedure to decrease patients anxiety. Using cross-table lateral fluoroscopy, the centroid of the trapezoid of Left C5 , C6, C7 was identified, marked, and localized with 1% lidocaine 1 ml at each level for skin and Sub Q infiltrations . Subsequently, a 25G 3.5 inches long 3 spinal needle was advanced guided by fluoroscopy to the centroid of the tr apezoid of Left C5, C6,C7 . [place] tip position was confirmed at the centroid of the trapezoids of Left C5 ,C6 , C7 with anteroposterior fluoroscopy. Subsequently, 1,5 ml of preservative-free Ropivacaine 0.5% mixed with Depo- Medrol 20 mg and half ml of the mixture was injected after negative aspiration for blood and CSF. [place] was then removed intact. COMPLICATIONS: No acute complications. DISPOSITION / PLANS: The patient was placed in a supine position and transferred to the recovery area in a stable condition for observation and was discharged from the recovery room after meeting discharge criteria. Home discharge instructions given to the patient by the staff. The patient was reexamined prior to discharge. The patient will schedule a follow up in the clinic in 2-4 weeks.
[2022-05-30] MEDS ORDERED: IV FLUID CONTINUATION 1,000 ML IV ONE (07:57)
--- NOTE | 2022-05-30 08:03 | FL ---
EXAMINATION TYPE: FL guided pain mgmt statistic DATE OF EXAM: 05/30/2022 CLINICAL HISTORY: LT CERVICAL FACET BLOCK TECHNIQUE: Fluoroscopy. COMPARISON: None. FINDINGS: LT CERVICAL FACET BLOCK. FL TIME [address] GAMEZ. 2 IMAGES SENT. IMPRESSION: As Above.
[2022-05-30 08:14] VITALS: BP 129/86; PULSE 63
== END 2022-05-30 08:31 | disposition home or self-care (01) ==
LOC: ORPAIN 06:32
PROVIDERS: ATTEND Specialist
DX: M50.323 Other cervical disc degeneration at C6-C7 level (principal); M47.812 Spondylosis without myelopathy or radiculopathy, cervical region; F17.200 Nicotine dependence, unspecified, uncomplicated; Z79.899 Other long term (current) drug therapy
CPT/HCPCS: 64490; 64491; J2250; J1030; J2795

== ENCOUNTER → 2022-06-19 | Outpatient (CLI) | payer BC ==
[2022-06-19 08:48] VITALS: BP 127/88; PULSE 72; RESP 18
--- NOTE | 2022-06-19 13:01 | P.PAINPG ---
PQRS Measure Charge Sheet Comment: A 51 yr old female with a history of severe and chronic neck pain secondary to cervical degenerative disc diseases and spondylosis with facet arthropathy without myelopathy presents today for evaluation s/p L MBB C5-C6, C6-C7 #2. Pt states she experienced 75% x 2 days s/p procedure. Pain level is currently at 5/10 in intensity, constant, localized in L cervical spine, stabbing in character w shooting towards LUE. Pain is provoked edu igh as 8/10 by lifting or repetitive movements. Pain is alleviated with PT x 6 wks in Jul 2021, chiropractic treatments in the past, heat, hot showers, medications (Ibu, Flexeril), topicals, repositioning and rest. Interventional pain procedures completed include L MBB C4-C6 x2 Patient is currently on Ibuprofen, Flexeril Patient denies any side effects of the medication(s), denies excessive drowsiness or sleepiness, denies suicidal ideation and reports that the current pain medication is helping to control the pain and improve activities of daily living. Patient denies any motor or sensory deficits. Patient denies any fever or night sweats, denies any change in the bowel movements or urination. Physical Examination: -Constitutional: Cooperative. Not in acute distress . - Neurologic: Cranial nerve II to XII intact. No focal neurological deficits. - Psychatric: Alert & oriented x 3. Matching mood & appropriate affect. Judgment and insight intact. - Musculoskeletal: Cervical spine: Muscle bulk/ tone/ strength in the bilateral upper extremities normal Vertebral body tenderness to palpation over Spurling test positive Distraction test positive Facet loading test positive w L lateral flexion and palpation over L C4- C5, C5-C6 facets Thoracic spine Muscle bulk / tone/ strength in the bilateral paraspinal muscles normal Vertebral body tender to palpation over Facet loading test positive Lumbar spine: Motor bulk/ tone/ strength lower extremities , thigh and legs : 5/5 Deep tendon reflexes : Normal Knee Jerk. Normal Ankle Jerk . Vertebral body tenderness to palpation over Lumbar Facet Loading Test positive Straight Leg Raise: positive at 30 degrees right side/ left side Gaenslen's Test positive Sacral spine : Severe tenderness over the Sacroiliac joint: right side / left side Range of motion: Flexion of the lumbar spine <60 degrees Range of motion: Extension of the lumbar spine <20 degrees Gaenslen's Test positive Eliceo's Test positive Ralph test: positive right side / left side Thigh Thrust Test Sacral Thrust Test Assessment and plan: Chronic neck pain secondary to cervical degenerative disc disease, spondylosis with facet arthropathy without myelopathy Recommendation of L RFA C4-C5, C5-C6. Pt exhibited sufficient pain relief w prior L MBB procedures. Risks, benefits of procedure discussed and pt verbalized understanding. Admits to anticoagulant use or medical history of diabetes. Protocol for discontinuation/ continuation of medications triston procedure discussed. All patient questions answered I have spent less than 30 minutes on patient care today. Dr Nina was available by phone for the evaluation of this patient. The time was used to review the medical records including relevant urine studies and Prescription history (MAPs), review of the available imaging, evaluation and examination of the patient, coordination of care with the medical staff and if applicable referring physicians, as well as creation of the medical record - Pain Location Left Neck Non-Pharmacological Interventions: Chiropractic Treatment, Heat, Home Exercise, Inactivity, Physical Therapy, Relaxation Technique, Stretching Pharmacological Interventions: Block, Epidural, PRN Medication, Topical Medication PQRS Narrative: Smoking Status Current every day smoker Hx Alcohol Use (MH) Yes: Rare Home Medications: Ambulatory Orders Cyclobenzaprine [Flexeril] 5 mg PO QAM PRN 10/25/21 Ibuprofen [Motrin Ib] 400 mg PO DIRECTED PRN 10/25/21 Famotidine [Pepcid] 20 mg PO DAILY PRN 12/04/21 Diclofenac Sodium Gel [Voltaren Gel] 100 gm TOPICAL BID 30 Days #100 g 03/05/22 Controlled Substance Measures - Controlled Substance Measures Is patient prescribed a controlled substance at discharge?: No
== END ==
LOC: PNWHC3 08:23
PROVIDERS: ATTEND Specialist
DX: M50.30 Other cervical disc degeneration, unspecified cervical region (principal); G89.29 Other chronic pain; M47.812 Spondylosis without myelopathy or radiculopathy, cervical region; F17.200 Nicotine dependence, unspecified, uncomplicated; F10.90 Alcohol use, unspecified, uncomplicated
CPT/HCPCS: 99211

== ENCOUNTER → 2022-06-25 | Outpatient (CLI) | payer BC ==
--- NOTE | 2022-06-25 15:51 | XR ---
EXAMINATION TYPE: XR lumbosacral spine min 4V DATE OF EXAM: 06/25/2022 COMPARISON: None HISTORY: Thoracic and lumbar pain TECHNIQUE: 5 view lumbar spine FINDINGS: There is a minimal grade 1 spondylolisthesis of L4 anterior abnormal finding. On the obliqu e views appears to be spondylolysis of L5 bilaterally. Mild facet degenerative changes are present. T here are 5 lumbar-type vertebral bodies. The pedicles are intact. Disc heights are preserved. Vertebr al body heights are preserved. IMPRESSION: 1. Minimal grade 1 spondylolisthesis of L4 anterior to L5. 2. Spondylolysis of bilateral L5
--- NOTE | 2022-06-25 15:52 | XR ---
EXAMINATION TYPE: XR thoracic spine complete DATE OF EXAM: 06/25/2022 COMPARISON: None HISTORY: Thoracic pain TECHNIQUE: 3 view thoracic spine FINDINGS: There are 12 thoracic type vertebral bodies. Pedicles are intact. Disc heights appear prese rved prevertebral body heights are preserved. Alignment is normal. Mild spondylosis may be within the mid thoracic spine. IMPRESSION: 1. No acute osseous abnormalities thoracic spine.
== END | disposition home or self-care (01) ==
LOC: RADXRYALE 15:14
PROVIDERS: ATTEND Physician Assistant Medical
DX: M43.16 Spondylolisthesis, lumbar region (principal); M47.816 Spondylosis without myelopathy or radiculopathy, lumbar region; M54.6 Pain in thoracic spine
CPT/HCPCS: 72072; 72110

== ENCOUNTER → 2022-06-26 | Outpatient (CLI) | payer BC ==
[2022-06-26 09:23] VITALS: BP 138/87; PULSE 84; RESP 18; TEMP 98
--- NOTE | 2022-06-26 09:24 | P.PAINPG ---
PQRS Measure Charge Sheet Comment: A 51 yr old female with a history of severe and chronic mid back pain secondary to thoracic degenerative disc diseases and spondylosis with facet arthropathy without myelopathy presents today for mid back pain. Pain level is currently at 2/10 in intensity, constant, localized betw the shoulder blades, dull/ achy in character w shooting towards the neck and lower back. Pain is provoked as high as 8/10 by lifting and pushing/pulling. Pain is alleviated with medications (ibuprofen, Flexeril, lidocaine), injections in the past, topicals, PT 6 weeks, massage therapy 1 time which was ineffective, repositioning and rest. Interventional pain procedures completed include L MBB C4-C6 x1 Patient is currently on Ibuprofen, Flexeril, Lidocaine Patient denies any side effects of the medication(s), denies excessive drowsiness or sleepiness, denies suicidal ideation and reports that the current pain medication is helping to control the pain and improve activities of daily living. Patient denies any motor or sensory deficits. Patient denies any fever or night sweats, denies any change in the bowel movements or urination. Physical Examination: -Constitutional: Cooperative. Not in acute distress . - Neurologic: Cranial nerve II to XII intact. No focal neurological deficits. - Psychatric: Alert & oriented x 3. Matching mood & appropriate affect. Judgment and insight intact. - Musculoskeletal: Cervical spine: Muscle bulk/ tone/ strength in the bilateral upper extremities normal Vertebral body tenderness to palpation over Spurling test positive Distraction test positive Facet loading test positive Thoracic spine Muscle bulk / tone/ strength in the bilateral paraspinal muscles normal Vertebral body tender to palpation over T4 Facet loading test positive Lumbar spine: Motor bulk/ tone/ strength lower extremities , thigh and legs : 5/5 Deep tendon reflexes : Normal Knee Jerk. Normal Ankle Jerk . Vertebral body tenderness to palpation over Lumbar Facet Loading Test positive Straight Leg Raise: positive at 30 degrees right side/ left side Gaenslen's Test positive Sacral spine : Severe tenderness over the Sacroiliac joint: right side / left side Range of motion: Flexion of the lumbar spine <60 degrees Range of motion: Extension of the lumbar spine <20 degrees Gaenslen's Test positive Eliceo's Test positive Ralph test: positive right side / left side Thigh Thrust Test Sacral Thrust Test Assessment and plan: Chronic mid back pain secondary to thoracic degenerative disc disease, spondylosis with facet arthropathy without myelopathy Recommendation of Thoracic x ray re: M51.34. May need additional testing, if indicated. Pt may return to this clinic within 2 wks for a re evaluation. Risks, benefits of procedure discussed and pt verbalized understanding. Denies anticoagulant use or medical history of diabetes. All patient questions answered I have spent less than 30 minutes on patient care today. Dr Nina was available by phone for the evaluation of this patient. The time was used to review the medical records including relevant urine studies and Prescription history (MAPs), review of the available imaging, evaluation and examination of the patient, coordination of care with the medical staff and if applicable referring physicians, as well as creation of the medical record PQRS Narrative: Smoking Status Current every day smoker Hx Alcohol Use (MH) Yes: Rare Home Medications: Ambulatory Orders Cyclobenzaprine [Flexeril] 5 mg PO QAM PRN 10/25/21 Ibuprofen [Motrin Ib] 400 mg PO DIRECTED PRN 10/25/21 Famotidine [Pepcid] 20 mg PO DAILY PRN 12/04/21 Diclofenac Sodium Gel [Voltaren Gel] 100 gm TOPICAL BID 30 Days #100 g 03/05/22 Controlled Substance Measures - Controlled Substance Measures Is patient prescribed a controlled substance at discharge?: No
== END ==
LOC: PNWHC3 08:11
PROVIDERS: ATTEND Specialist
DX: M47.814 Spondylosis without myelopathy or radiculopathy, thoracic region (principal); M51.34 Other intervertebral disc degeneration, thoracic region; G89.29 Other chronic pain; F17.200 Nicotine dependence, unspecified, uncomplicated
CPT/HCPCS: 99211

== ENCOUNTER → 2022-07-14 | Outpatient (CLI) | payer BC ==
--- NOTE | 2022-07-14 08:35 | MR ---
INDICATION: Patient age:Female; 51 years old; Reason for study: M51.34 thoracic DDD; [facility]. COMPARISON: Thoracic spine radiograph 06/25/2022. TECHNIQUE: Multi planar, multi sequence imaging was performed of the thoracic spine without the admin istration of contrast. FINDINGS: The thoracic vertebral bodies have preserved heights and alignment. Type I Modic change involving the inferior endplate of C6. T1/T2 hyperintense 1.5 cm lesion within the T5 vertebral body favored to re present a benign vertebral hemangioma. Multilevel disc desiccation. Thoracic spinal cord appears unre markable. Posterior disc osteophyte complex with minimal effacement of the anterior thecal sac at C6-C7. C7-C8 Central disc protrusion with mild effacement of the anterior thecal sac. C8-C9 broad-based disc bulge with mild effacement of the anterior thecal sac. No significant neural foraminal stenosis at any lev el identified. IMPRESSION: 1. C7-C8 central disc herniation with mild spinal canal stenosis. 2. Mild degenerative disc disease at C6-C7 and C8-C9 as described above.
== END | disposition home or self-care (01) ==
LOC: RADMRIMAIN 06:57
PROVIDERS: ATTEND Physician Assistant Medical
DX: M51.24 Other intervertebral disc displacement, thoracic region (principal); M50.323 Other cervical disc degeneration at C6-C7 level; M51.34 Other intervertebral disc degeneration, thoracic region; M48.02 Spinal stenosis, cervical region
CPT/HCPCS: 72146

== ENCOUNTER → 2022-07-28 | Outpatient (CLI) | payer BC ==
[2022-07-28 09:30] VITALS: BP 125/80; PULSE 83; RESP 18; TEMP 97.8
--- NOTE | 2022-07-28 15:33 | P.PAINPG ---
PQRS Measure Charge Sheet Comment: A 51 yr old female with a history of severe and chronic neck and mid back pain x 18 mo secondary to DDD and spondylosis with facet arthropathy without myelopathy presents today for evaluation s/p mid back pain. Pain level is currently at 4 /10 in intensity, constant, localized between the shoulder blades, dull/ achy in character w shooting towards the L back of shoulder. 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 Pain is alleviated with PT x 6 wks in Jul 2021 for her cervical spine, home exercise regimen, massages at home, hot showers, meds (Motrin, Flexeril, Prednisone taper), topicals, repositioning and rest. Interventional pain procedures completed include Carlos Enamorado MBB C5-C7 x2 Patient is currently on Motrin, Flexeril, topicals Patient denies any side effects of the medication(s), denies excessive drowsiness or sleepiness, denies suicidal ideation and reports that the current pain medication is helping to control the pain and improve activities of daily living. Patient denies any motor or sensory deficits. Patient denies any fever or night sweats, denies any change in the bowel movements or urination. Physical Examination: -Constitutional: Cooperative. Not in acute distress . - Neurologic: Cranial nerve II to XII intact. No focal neurological deficits. - Psychatric: Alert & oriented x 3. Matching mood & appropriate affect. Judgment and insight intact. - Musculoskeletal: Cervical spine: Muscle bulk/ tone/ strength in the bilateral upper extremities normal Vertebral body tenderness to palpation over Spurling test positive Distraction test positive Facet loading test positive TTP L C5-C6, C6-C7 facets Thoracic spine Muscle bulk / tone/ strength in the bilateral paraspinal muscles normal Vertebral body tender to palpation Facet loading test positive Lumbar spine: Motor bulk/ tone/ strength lower extremities , thigh and legs : 5/5 Deep tendon reflexes : Normal Knee Jerk. Normal Ankle Jerk . Vertebral body tenderness to palpation over Lumbar Facet Loading Test positive Straight Leg Raise: positive at 30 degrees right side/ left side Gaenslen's Test positive Sacral spine : Severe tenderness over the Sacroiliac joint: right side / left side Range of motion: Flexion of the lumbar spine <60 degrees Range of motion: Extension of the lumbar spine <20 degrees Gaenslen's Test positive Ralph test: positive right side / left side Thigh Thrust Test Sacral Thrust Test Imaging: X ray of the thoracic spine from Jul 2022 reviewed MRI without contrast of the thoracic spine from 07/14/22 reviewed Assessment and plan: Chronic neck and mid back pain secondary to DDD, spondylosis with facet arthropathy without myelopathy Recommendation of L RFA C5-C6, C6-C7. Pt stated she was confused about discussing her pain level and amount of relief at her prior office visit because she factored in all her pain in various joints. Today, she clearly understands that she is to reference the specific area worked on. Pt appears to benefit from an RFA of L C5-C6, C6-C7. Risks, benefits of procedure discussed and pt verbalized understanding. Denies anticoagulant use or medical history of diabetes. All patient questions answered I have spent less than 30 minutes on patient care today. Dr Nina was available by phone for the evaluation of this patient. The time was used to review the medical records including relevant urine studies and Prescription history (MAPs), review of the available imaging, evaluation and examination of the patient, coordination of care with the medical staff and if applicable referring physicians, as well as creation of the medical record PQRS Narrative: Smoking Status Current every day smoker Hx Alcohol Use (MH) Yes: Rare Home Medications: Ambulatory Orders Cyclobenzaprine [Flexeril] 5 mg PO QAM PRN 10/25/21 Ibuprofen [Motrin Ib] 400 mg PO DIRECTED PRN 10/25/21 Famotidine [Pepcid] 20 mg PO DAILY PRN 12/04/21 Diclofenac Sodium Gel [Voltaren Gel] 100 gm TOPICAL BID 30 Days #100 g 03/05/22 Controlled Substance Measures - Controlled Substance Measures Is patient prescribed a controlled substance at discharge?: No
== END ==
LOC: PNWHC3 08:51
PROVIDERS: ATTEND Specialist
DX: M47.812 Spondylosis without myelopathy or radiculopathy, cervical region (principal); M50.30 Other cervical disc degeneration, unspecified cervical region; G89.29 Other chronic pain; F17.200 Nicotine dependence, unspecified, uncomplicated
CPT/HCPCS: 99211

== ENCOUNTER 2022-08-29 08:01 | Day surgery (SDC) | payer BC ==
[2022-08-27 15:47] VITALS: BMI 32.3
[~2022-08-29 08:01] MED LIST changes: -LIDOCAINE 1% (10MG/ML) FOR IV START INTRADERMA PRN
[2022-08-29 08:28] VITALS: RESP 16; TEMP 98.1
[2022-08-29] MEDS ORDERED: DEXAMETHASONE SOD PHOSPHATE 10 MG/ML 1 ML VIAL ONE (08:31)
[2022-08-29] MEDS ORDERED: MIDAZOLAM 2 MG/2 ML VIAL ONE (08:31)
[2022-08-29] MEDS ORDERED: fentaNYL (PF) 50 MCG/ML 2 ML AMP ONE (08:31)
[2022-08-29] MEDS ORDERED: ROPIVACAINE 5 MG/ML 20 ML AMPULE ONE (08:31)
--- NOTE | 2022-08-29 09:08 | P.PCN ---
Date of Procedure: 08/29/22 Surgeon: Gabriella Macedo Pathology: none sent Condition: stable Disposition: PACU Description of Procedure: PREOPERATIVE DIAGNOSIS: Cervical spondylosis with Facet Arthropathy without myelopathy. POSTOPERATIVE DIAGNOSIS: Cervical spondylosis with Facet Arthropathy without myelopathy. PROCEDURES: Left Radiofrequency thermocoagulation, C5, C6, and C7 medial branch with Fluroscopy [place] ANESTHESIA: Local with 1% lidocaine; IV sedation with fentanyl and Versed by the anesthesia Department. EBL: Minimal PROCEDURE INDICATION: The patient with neck pain secondary to cervical arthropathy who had more than 50% relief of her pain with previous diagnostic cervical medial branch block. PROCEDURE DESCRIPTION / TECHNIQUE: The patient was seen and identified in the preoperative area. Risks, benefits, complications, and alternatives were discussed with the patient, the patient agreed to proceed with the procedure and signed the consent. IV was started. Vital signs remained stable throughout the procedure. Patient was taken to the OR and time out was completed. The patient was placed in the prone position on the procedure table. A pillow was placed under the patients chest to increase the cervical interlaminar space. The cervical area was prepped and draped in the usual sterile fashion. Critical pause was taken. Vital signs were closely monitored during the procedure. Conscious sedation was used during the procedure to decrease patients anxiety. Using cross-table lateral fluoroscopy, the center of the trapezoid-shaped cervical pillars of C5, C6,and the superior articular process of C7 were identified, marked, and localized with 1% lidocaine. Subsequently, a 20 [id number] radiofrequency cannula with a 10-mm active tip was advanced guided by fluoroscopy to the target points mentioned above. . Each site then underwent motor testing at 2 Hz and 0 to 3 volt with local stimulation, but no radicular symptoms down the arm. I then injected 1 ml of lidocaine 1% in each needle. Thereafter C5 ,C6 and C7 sites underwent radiofrequency thermocoagulation at 80 degrees celsius for 90 seconds . After thermocoagulation was done, 1 ml of the block solution containing Dexamethasone 10 mg and 2 mL of preservative-free ropivacaine was injected at the C5,C6, and C7 levels after negative aspiration of CSF and blood and with no paresthesias. Cannulas were retracted. Skin was cleansed and bandages were applied. COMPLICATIONS: No acute complications. COMMENTS: A copy of needle placement was saved to the C-arm machine at the radiology department. DISPOSITION / PLANS: The patient was placed in a supine position and transferred to the recovery area in a stable condition for observation and was discharged from the recovery room after meeting discharge criteria. Home discharge instructions given to the patient by the staff. Sedation time: Sedation was provided by the anesthesia Department
[2022-08-29] MEDS ORDERED: IV FLUID CONTINUATION 1,000 ML IV ONE (09:13)
--- NOTE | 2022-08-29 09:21 | FL ---
Intraoperative/procedural fluoroscopic services were provided for cervical facet block. Total fluoros copy time is 42 seconds with a total of 4 submitted images to PACS. Please see the operative note for further details.
[2022-08-29 09:30] VITALS: BP 121/79; PULSE 70
== END 2022-08-29 09:43 | disposition home or self-care (01) ==
LOC: ORPAIN 08:01
PROVIDERS: ATTEND Anesthesiology
DX: M47.812 Spondylosis without myelopathy or radiculopathy, cervical region (principal); F17.200 Nicotine dependence, unspecified, uncomplicated; K21.9 Gastro-esophageal reflux disease without esophagitis; Z98.891 History of uterine scar from previous surgery; Z98.890 Other specified postprocedural states; Z79.899 Other long term (current) drug therapy
CPT/HCPCS: 64633; 64634; J2250; J1100; J2001; J3010; J2795

== ENCOUNTER → 2022-09-15 | Outpatient (CLI) | payer BC ==
[2022-09-15 09:14] VITALS: BP 133/85; PULSE 92; RESP 18; TEMP 98.1
--- NOTE | 2022-09-15 15:21 | P.PAINPG ---
PQRS Measure Charge Sheet Comment: A 51 yr old female with a history of severe and chronic neck & mid back pain x 10 mo secondary to cervicothoracic DDD and spondylosis with facet arthropathy without myelopathy presents today for evaluation s/p L RFA C5-C6, C6-C7. Pt states she experienced 95 % pain relief s/p procedure. Pain level is provoked at 8 /10 in intensity, constant, localized in the mid thoracic spine, sharp/ throbbing in character w shooting towards the R shoulder and R side of neck. Pain is provoked by evening, lifting and repetitive behavior. Pain is alleviated with PT in 2021 but stopped due to too pricey ($100 per visit), massage worsened pain, heat, meds (Motrin, Flexeril, Voltaren gel), hot showers, laying flat, repositioning and rest. Interventional pain procedures completed include L RFA C5-C7 Patient is currently on Motrin, Flexeril, Voltaren gel Patient denies any side effects of the medication(s), denies excessive drowsiness or sleepiness, denies suicidal ideation and reports that the current pain medication is helping to control the pain and improve activities of daily living. Patient denies any motor or sensory deficits. Patient denies any fever or night sweats, denies any change in the bowel movements or urination. Physical Examination: -Constitutional: Cooperative. Not in acute distress . - Neurologic: Cranial nerve II to XII intact. No focal neurological deficits. - Psychatric: Alert & oriented x 3. Matching mood & appropriate affect. Judgment and insight intact. - Musculoskeletal: Cervical spine: Muscle bulk/ tone/ strength in the bilateral upper extremities normal Vertebral body tenderness to palpation over Spurling test positive Distraction test positive Facet loading test positive Thoracic spine Muscle bulk / tone/ strength in the bilateral paraspinal muscles normal Vertebral body tender to palpation over R T1 Facet loading test positive Lumbar spine: Motor bulk/ tone/ strength lower extremities , thigh and legs : 5/5 Deep tendon reflexes : Normal Knee Jerk. Normal Ankle Jerk . Vertebral body tenderness to palpation over Lumbar Facet Loading Test positive Straight Leg Raise: positive at 30 degrees right side/ left side Gaenslen's Test positive Sacral spine : Severe tenderness over the Sacroiliac joint: right side / left side Range of motion: Flexion of the lumbar spine <60 degrees Range of motion: Extension of the lumbar spine <20 degrees Gaenslen's Test positive Ralph test: positive right side / left side Thigh Thrust Test Sacral Thrust Test Imaging: MRI without contrast of the thoracic spine from Jul 2022 reviewed. Assessment and plan: Chronic neck/ mid back pain secondary to cervicothoracic DDD, spondylosis with facet arthropathy without myelopathy Recommendation of NANDINI R paramedian T1-T2 #1. May need a series of injections, up to 3 within a 6 mo period, for optimal pain relief. Risks, benefits of procedure discussed and pt verbalized understanding. Denies anticoagulant use or medical history of diabetes. All patient questions answered I have spent less than 30 minutes on patient care today. Dr Nina was available by phone for the evaluation of this patient. The time was used to review the medical records including relevant urine studies and Prescription history (MAPs), review of the available imaging, evaluation and examination of the patient, coordination of care with the medical staff and if applicable referring physicians, as well as creation of the medical record PQRS Narrative: Smoking Status Current every day smoker Hx Alcohol Use (MH) Yes: Rare Home Medications: Ambulatory Orders Cyclobenzaprine [Flexeril] 5 mg PO QAM PRN 10/25/21 Ibuprofen [Motrin Ib] 400 mg PO DIRECTED PRN 10/25/21 Famotidine [Pepcid] 20 mg PO DAILY PRN 12/04/21 Diclofenac Sodium Gel [Voltaren Gel] 100 gm TOPICAL BID 30 Days #100 g 03/05/22 Controlled Substance Measures - Controlled Substance Measures Is patient prescribed a controlled substance at discharge?: No
== END ==
LOC: PNWHC3 08:12
PROVIDERS: ATTEND Specialist
DX: M47.813 Spondylosis without myelopathy or radiculopathy, cervicothoracic region (principal); M50.33 Other cervical disc degeneration, cervicothoracic region; F17.200 Nicotine dependence, unspecified, uncomplicated
CPT/HCPCS: 99211

== ENCOUNTER 2022-12-16 10:57 | Day surgery (SDC) | payer BC ==
[2022-12-11 08:28] VITALS: BMI 32.9
[2022-12-16] MEDS ORDERED: LACTATED RINGERS 1,000 ML IV SCH (11:13)
[2022-12-16] MEDS ORDERED: LIDOCAINE 1% (10MG/ML) FOR IV START INTRADERMA PRN (11:13)
[2022-12-16 11:22] VITALS: RESP 16; TEMP 97.3
[2022-12-16] MEDS ORDERED: IOPAMIDOL M200 10 ML VIAL ONE (12:25)
[2022-12-16] MEDS ORDERED: methylPREDNISolone ACETATE 80 MG/ML 1 ML VIAL ONE (12:25)
--- NOTE | 2022-12-16 12:36 | P.PCN ---
Date of Procedure: 12/16/22 Procedure(s) Performed: PREOPERATIVE DIAGNOSIS: 1- Thoracic Degenerative Disc Diseases 2-thoracic radiculopathy POSTOPERATIVE DIAGNOSIS: 1-Thoracic degenerative disc disease. 2-thoracic radiculopathy PROCEDURE 1. Thoracic epidural steroid injection under fluoroscopic guidance at the T1-2 level. (Fluoroscopy imaging was available in radiology department) 2. Thoracic epidurogram. ANESTHESIA: Local anesthesia with lidocaine 1% 3 mL only EBL: Minimal PROCEDURE INDICATION: The patient with upper back pain and radiculitis symptoms unresponsive to conservative treatment. Fluoroscopy was used to optimize visualization of the needle placement and to maximize safety. PROCEDURE DESCRIPTION / TECHNIQUE: The patient was seen and identified in the preoperative area. Risks, benefits, complications including but not limited to infections ,bleeding ,allergic reaction to the medications ,nerve damage and not complete pain releife , and alternatives were discussed with the patient. The patient agreed to proceed with the procedure and signed the consent. IV was started, and vital signs were stable. Patient was taken to the OR and time out was completed. The patient was placed in the prone position on procedure table and a pillow was placed under the abdomen to reduce lumbar lordosis. The lumbosacral area was prepped and draped in the usual sterile fashion.ere closely monitored during the procedure. Vital signs was monitered during the entire procedure. Using anterior-posterior fluoroscopy, the T1-2 interlaminar space was identified and the skin over this site was marked and then infiltrated with 1% lidocaine subcutaneously. Subsequently, a 20-gauge Tuohy epidural needle was inserted and advanced toward the epidural space using the ``Loss of resistance technique and guided by AP and lateral fluoroscopy. The correct needle position in the epidural space was verified with the injection of 2 mL of the water soluble contrast dye Isovue 200 contrast and observing an excellent epidurogram with the epidural spread of the dye, after negative aspiration for blood and CSF and in the absence of paresthesias. Again after negative aspiration, a 6 ml mixture containing 80 mg of Depo-medrol ( Preservetive Free ), and 2 ml of preservative free Normal Saline, and 2 ml of preservative free lidocaine 1% solution was injected and a washout of epidurogram was seen. Needle was withdrawn intact, skin was cleansed, and bandages were applied. COMPLICATIONS: None DISPOSITION / PLANS: The patient was placed in a supine position and transferred to the recovery area in a stable condition for observation. There was no evidence of lower extremity motor or sensory deficit after the procedure. Patient was discharged from the recovery room after meeting discharge criteria. Home discharge instructions were given to the patient by the staff. The patient was reexamined prior to discharge. The patient will schedule a follow up in the clinic in 2-4 weeks.
--- NOTE | 2022-12-16 12:46 | FL ---
EXAMINATION TYPE: FL guided pain mgmt statistic DATE OF EXAM: 12/16/2022 CLINICAL HISTORY: Mid back pain. TECHNIQUE: Fluoroscopy. COMPARISON: None. FINDINGS: Fluoroscopic guidance was provided during pain relief procedure performed by Dr. Nina . A total of 2.0 seconds of fluoroscopic time was utilized during the procedure and 1 spot images ar e acquired. Single image acquired shows needle localization near T1-T2 level with contrast injection . IMPRESSION: As Above.
[2022-12-16 12:51] VITALS: BP 118/84; PULSE 70
== END 2022-12-16 12:53 | disposition home or self-care (01) ==
LOC: ORPAIN 10:57
PROVIDERS: ATTEND Specialist
DX: M51.14 Intervertebral disc disorders with radiculopathy, thoracic region (principal)
CPT/HCPCS: 62321; J1040; Q9966

== ENCOUNTER → 2023-01-08 | Outpatient (CLI) | payer BC ==
[2023-01-08 08:33] VITALS: BP 129/76; PULSE 78; RESP 16; TEMP 98.3
--- NOTE | 2023-01-08 14:11 | P.PAINPG ---
PQRS Measure Charge Sheet Comment: A 52 yr old female with a history of severe and chronic mid back pain secondary to thoracic DDD and spondylosis with facet arthropathy without myelopathy presents today for evaluation s/p NANDINI T1-2. Pt states she experienced 75% pain relief x 3 wks s/p procedure. Pain level is provoked at 6/10 in intensity, constant, localized in the R cervical spine, achy/ sharp in character w/o shooting pain. Pain is provoked by rotation. Pain is alleviated with PT x 3 visits in 2020, massage therapy x 3 visits in 2021, medications, topical, repositioning and rest. Interventional pain procedures completed include NANDINI T1-2 Patient is currently on Ibu, Flexeril Patient denies any side effects of the medication(s), denies excessive drowsiness or sleepiness, denies suicidal ideation and reports that the current pain medication is helping to control the pain and improve activities of daily living. Patient denies any motor or sensory deficits. Patient denies any fever or night sweats, denies any change in the bowel movements or urination. Physical Examination: -Constitutional: Cooperative. Not in acute distress . - Neurologic: Cranial nerve II to XII intact. No focal neurological deficits. - Psychatric: Alert & oriented x 3. Matching mood & appropriate affect. Judgment and insight intact. - Musculoskeletal: Cervical spine: Muscle bulk/ tone/ strength in the bilateral upper extremities normal Vertebral body tenderness to palpation over Spurling test positive on R C4-C6 Distraction test positive Facet loading test positive TTP on R C4-C5, C5-C6 Thoracic spine Muscle bulk / tone/ strength in the bilateral paraspinal muscles normal Vertebral body tender to palpation over Facet loading test positive TTP Lumbar spine: Motor bulk/ tone/ strength lower extremities , thigh and legs : 5/5 Deep tendon reflexes : Normal Knee Jerk. Normal Ankle Jerk . Vertebral body tenderness to palpation over Lumbar Facet Loading Test positive Straight Leg Raise: positive at 30 degrees right side/ left side Gaenslen's Test positive Sacral spine : Severe tenderness over the Sacroiliac joint: right side / left side Range of motion: Flexion of the lumbar spine <60 degrees Range of motion: Extension of the lumbar spine <20 degrees Gaenslen's Test positive right side / left side Ralph test: positive right side / left side Thigh Thrust Test positive right side / left side Sacral Thrust Test positive right side / left side Imaging: MRI non contrast of the cervical spine from 02/26/21 reviewed Assessment and plan: Chronic mid back pain secondary to thoracic DDD, spondylosis with facet arthropathy without myelopathy Recommendation of R facet block of the medial branches C4-C5, C5-C6 #1. May need additional injections, up until RFA, for optimal pain relief. Risks, benefits of procedure discussed and pt verbalized understanding. Admits to anticoagulant use or medical history of diabetes. Protocol for discontinuation/ continuation of medications triston procedure discussed. All questions answered. I have spent less than 30 minutes on patient care today. Dr Nina was available by phone for the evaluation of this patient. The time was used to review the medical records including relevant urine studies and Prescription history (MAPs), review of the available imaging, evaluation and examination of the patient, coordination of care with the medical staff and if applicable referring physicians, as well as creation of the medical record PQRS Narrative: Smoking Status Current every day smoker Hx Alcohol Use (MH) Yes: Rare Home Medications: Ambulatory Orders Cyclobenzaprine [Flexeril] 5 mg PO QAM PRN 10/25/21 Ibuprofen [Motrin Ib] 400 mg PO Q4H PRN 10/25/21 Diclofenac Sodium Gel [Voltaren Gel] 100 gm TOPICAL BID PRN 10/03/22 Controlled Substance Measures - Controlled Substance Measures Is patient prescribed a controlled substance at discharge?: No
== END | disposition home or self-care (01) ==
LOC: PNWHC3 08:01
PROVIDERS: ATTEND Specialist
DX: M50.121 Cervical disc disorder at C4-C5 level with radiculopathy (principal); M50.122 Cervical disc disorder at C5-C6 level with radiculopathy; M47.22 Other spondylosis with radiculopathy, cervical region; F17.210 Nicotine dependence, cigarettes, uncomplicated; E11.9 Type 2 diabetes mellitus without complications; Z79.01 Long term (current) use of anticoagulants
CPT/HCPCS: 99211

== ENCOUNTER 2023-01-27 09:27 | Day surgery (SDC) | payer BC ==
[2023-01-23 11:54] VITALS: BMI 32.9
[2023-01-27] MEDS ORDERED: LACTATED RINGERS 1,000 ML IV SCH (09:33)
[2023-01-27] MEDS ORDERED: LIDOCAINE 1% (10MG/ML) FOR IV START INTRADERMA PRN (09:33)
[2023-01-27 09:45] VITALS: RESP 16; TEMP 97.3
[2023-01-27] MEDS ORDERED: methylPREDNISolone ACETATE 40 MG/ML 1 ML VIAL ONE (10:36)
[2023-01-27] MEDS ORDERED: IOPAMIDOL M200 10 ML VIAL ONE (10:36)
--- NOTE | 2023-01-27 10:45 | P.PCN ---
Date of Procedure: 01/27/23 Procedure(s) Performed: PREOPERATIVE DIAGNOSIS: 1-Cervical Spondylosis with Facet Arthropathy.without myelopathy. 2-cervical degenerative disc disease POSTOPERATIVE DIAGNOSIS: Same as preoperative diagnosis. PROCEDURES: Diagnostic Right C4 , C5 , C6 ,medial branch blocks, with fluoro scopic guidance (fluoroscopy images available in radiology department ) ( to target the facet joint at Right C4-5 ,C5- 6 )# 1st ANESTHESIA: Local anesthesia with lidocaine 1 % 3 mL only. EBL: Minimal PROCEDURE INDICATION: The patient with neck pain secondary to cervical arthropathy unresponsive to more conservative treatments. PROCEDURE DESCRIPTION / TECHNIQUE: The patient was seen and identified in the preoperative area. Risks, benefits, complications, and alternatives were discussed with the patient, the patient agreed to proceed with the procedure and signed the consent. IV was started. Vital signs remained stable throughout the procedure. Patient was taken to the OR and time out was completed. The patient was placed in the Lateral position ( left side up )on the procedure table. The cervical area was prepped and draped in the usual sterile fashion. Critical pause was taken. Vital signs were closely monitored during the procedure. . Using cross-table lateral fluoroscopy, the centroid of the trapezoid of Right C4 , C5 , C6, was identified, marked, and localized with 1% lidocaine 1 ml at each level for skin and Sub Q infiltrations . Subsequently, a 25G 3.5 inches long 3 spinal needle was advanced guided by fluoroscopy to the centroid of the trapezoid of right C4 ,C5, C6, . [place] tip position was confirmed at the centroid of the trapezoids of Right C4 ,C5 ,C6 , with anteroposterior fluoroscopy. Subsequently, 1,5 ml of preservative-free Ropivacaine 0.5% mixed with Depo-Medrol 20 mg and half ml of the mixture was injected after negative aspiration for blood and CSF. [place] was then removed intact. COMPLICATIONS: No acute complications. DISPOSITION / PLANS: The patient was placed in a supine position and transferred to the recovery area in a stable condition for observation and was discharged from the recovery room after meeting discharge criteria. Home discharge i nstructions given to the patient by the staff. The patient was reexamined prior to discharge. The patient will schedule a follow up in the clinic in 2-4 weeks.
[2023-01-27 10:47] VITALS: BP 145/86; PULSE 72
--- NOTE | 2023-01-27 10:57 | FL ---
Intraoperative/procedural fluoroscopic services were provided. Total fluoroscopy time is 4 seconds wi th a total of 1 submitted images to PACS. Please see the operative/procedural note for further detail s. DAP: [id number] mGym2
== END 2023-01-27 11:00 | disposition home or self-care (01) ==
LOC: ORPAIN 09:27
PROVIDERS: ATTEND Specialist
DX: M50.322 Other cervical disc degeneration at C5-C6 level (principal); M47.812 Spondylosis without myelopathy or radiculopathy, cervical region
CPT/HCPCS: 64490; 64491 ×2; J1030; Q9966

== ENCOUNTER → 2023-02-12 | Outpatient (CLI) | payer BC ==
[2023-02-12 09:48] VITALS: BP 125/78; PULSE 82; RESP 18; TEMP 98
--- NOTE | 2023-02-18 07:32 | P.PAINPG ---
PQRS Measure Charge Sheet Comment: A 52 yr old female with a history of severe and chronic neck pain secondary to cervical DDD and spondylosis with facet arthropathy without myelopathy presents today for evaluation s/p R MBB C4-C5, C5-C6 #1. Pt states she experienced 80 % pain relief x 3 hrs s/p procedure. Pain level is provoked at 8 /10 in intensity, constant, localized in the R lower cervical spine, sharp in character w shooting towards the RUE. Pain is provoked by rotation, lateral flexion. Pain is alleviated with PT in 2021, heat, medications, topical, repositioning and rest. Interventional pain procedures completed include R MBB C4-C6 x1 Patient is currently on Flexeril, Ibu, Voltaren gel Patient denies any side effects of the medication(s), denies excessive drowsiness or sleepiness, denies suicidal ideation and reports that the current pain medication is helping to control the pain and improve activities of daily living. Patient denies any motor or sensory deficits. Patient denies any fever or night sweats, denies any change in the bowel movements or urination. Physical Examination: -Constitutional: Cooperative. Not in acute distress . - Neurologic: Cranial nerve II to XII intact. No focal neurological deficits. - Psychatric: Alert & oriented x 3. Matching mood & appropriate affect. Judgment and insight intact. - Musculoskeletal: Cervical spine: Muscle bulk/ tone/ strength in the bilateral upper extremities normal Vertebral body tenderness to palpation over Spurling test positive Distraction test positive Facet loading test positive TTP on R C4-C5, C5-C6 Thoracic spine Muscle bulk / tone/ strength in the bilateral paraspinal muscles normal Vertebral body tender to palpation over Facet loading test positive TTP Lumbar spine: Motor bulk/ tone/ strength lower extremities , thigh and legs : 5/5 Deep tendon reflexes : Normal Knee Jerk. Normal Ankle Jerk . Vertebral body tenderness to palpation over Lumbar Facet Loading Test positive Straight Leg Raise: positive at 30 degrees right side/ left side Gaenslen's Test positive Sacral spine : Severe tenderness over the Sacroiliac joint: right side / left side Range of motion: Flexion of the lumbar spine <60 degrees Range of motion: Extension of the lumbar spine <20 degrees Gaenslen's Test positive R / L Ralph test: positive right side / left side Thigh Thrust Test positive R / L Sacral Thrust Test positive R/ L Assessment and plan: Chronic neck pain secondary to cervical DDD, spondylosis with facet arthropathy without myelopathy Recommendation of R MBB C4-C5, C5-C6 #2. May need a series of injections, up until RFA, for optimal pain relief. Risks, benefits of procedure discussed and pt verbalized understanding. Admits to anticoagulant use or medical history of diabetes. Protocol for discontinuation/ continuation of medications triston procedure discussed. Minimal anesthesia provided, if clinically indicated, consisting of Versed and Fentanyl. All questions answered. I have spent less than 30 minutes on patient care today. Dr Nina was available by phone for the evaluation of this patient. The time was used to review the medical records including relevant urine studies and Prescription history (MAPs), review of the available imaging, evaluation and examination of the patient, coordination of care with the medical staff and if applicable referring physicians, as well as creation of the medical record PQRS Narrative: Smoking Status Current every day smoker Hx Alcohol Use (MH) Yes: Rare Home Medications: Ambulatory Orders Cyclobenzaprine [Flexeril] 5 mg PO QAM PRN 10/25/21 Ibuprofen [Motrin Ib] 400 mg PO Q4H PRN 10/25/21 Diclofenac Sodium Gel [Voltaren Gel] 100 gm TOPICAL BID PRN 10/03/22 Controlled Substance Measures - Controlled Substance Measures Is patient prescribed a controlled substance at discharge?: No
== END ==
LOC: PNWHC3 08:28
PROVIDERS: ATTEND Specialist
DX: M50.322 Other cervical disc degeneration at C5-C6 level (principal); M50.321 Other cervical disc degeneration at C4-C5 level; M47.812 Spondylosis without myelopathy or radiculopathy, cervical region; G89.29 Other chronic pain; F17.200 Nicotine dependence, unspecified, uncomplicated
CPT/HCPCS: 99211

== ENCOUNTER 2023-03-06 05:56 | Day surgery (SDC) | payer BC ==
[2023-03-05 09:14] VITALS: BMI 32.3
[2023-03-06 06:32] VITALS: RESP 16; TEMP 97
[2023-03-06] MEDS ORDERED: ROPIVACAINE 5 MG/ML 20 ML AMPULE ONE (07:03)
[2023-03-06] MEDS ORDERED: methylPREDNISolone ACETATE 40 MG/ML 1 ML VIAL ONE (07:03)
[2023-03-06] MEDS ORDERED: LIDOCAINE 1% (10MG/ML) FOR IV START INTRADERMA PRN (07:10)
[2023-03-06] MEDS ORDERED: LACTATED RINGERS 1,000 ML IV SCH (07:10)
--- NOTE | 2023-03-06 07:19 | P.PCN ---
Date of Procedure: 03/06/23 Procedure(s) Performed: PREOPERATIVE DIAGNOSIS: 1-Cervical Spondylosis with Facet Arthropathy.without myelopathy. 2-cervical degenerative disc disease POSTOPERATIVE DIAGNOSIS: Same as preoperative diagnosis. PROCEDURES: Diagnostic Right C4 , C5 , C6 ,medial branch blocks, with fluor oscopic guidance (fluoroscopy images available in radiology department ) ( to target the facet joint at Right C4-5 ,C5- 6 )# 2nd ANESTHESIA: Local anesthesia with lidocaine 1 % 3 mL only. EBL: Minimal PROCEDURE INDICATION: The patient with neck pain secondary to cervical arthropathy unresponsive to more conservative treatments. PROCEDURE DESCRIPTION / TECHNIQUE: The patient was seen and identified in the preoperative area. Risks, benefits, complications, and alternatives were discussed with the patient, the patient agreed to proceed with the procedure and signed the consent. IV was started. Vital signs remained stable throughout the procedure. Patient was taken to the OR and time out was completed. The patient was placed in the Lateral position ( Right side up )on the procedure table. The cervical area was prepped and draped in the usual sterile fashion. Critical pause was taken. Vital signs were closely monitored during the procedure. . Using cross-table lateral fluoroscopy, the centroid of the trapezoid of Right C4 , C5 , C6, was identified, marked, and localized with 1% lidocaine 1 ml at each level for skin and Sub Q infiltrations . Subsequently, a 25G 3.5 inches long 3 spinal needle was advanced guided by fluoroscopy to the centroid of the trapezoid of right C4 ,C5, C6, . [place] tip position was confirmed at the centroid of the trapezoids of Right C4 ,C5 ,C6 , with anteroposterior fluoroscopy. Subsequently, 1,5 ml of preservative-free Ropivacaine 0.5% mixed with Depo-Medrol 20 mg and half ml of the mixture was injected after negative aspiration for blood and CSF. [place] was then removed intact. COMPLICATIONS: No acute complications. DISPOSITION / PLANS: The patient was placed in a supine position and transferred to the recovery area in a stable condition for observation and was discharged from the recovery room after meeting discharge criteria. Home discharge instructions given to the patient by the staff. The patient was reexamined prior to discharge. The patient will schedule a follow up in the clinic in 2-4 weeks.
[2023-03-06 07:29] VITALS: BP 127/82; PULSE 73
--- NOTE | 2023-03-06 07:46 | FL ---
Intraoperative/procedural fluoroscopic services were provided. Total fluoroscopy time is 14.2 seconds with a total of 5 submitted images to PACS. Please see the operative/procedural note for further det ails. DAP: [id number] mGym2
== END 2023-03-06 07:41 | disposition home or self-care (01) ==
LOC: ORPAIN 05:56
PROVIDERS: ATTEND Specialist
DX: M50.322 Other cervical disc degeneration at C5-C6 level (principal); M47.812 Spondylosis without myelopathy or radiculopathy, cervical region
CPT/HCPCS: 64490; 64491

== ENCOUNTER → 2023-03-25 | Outpatient (CLI) | payer BC ==
[2023-03-25 09:30] VITALS: BP 118/74; PULSE 85; RESP 14; TEMP 97.8
--- NOTE | 2023-03-25 13:39 | P.PAINPG ---
PQRS Measure Charge Sheet Comment: A 52 yr old female with a history of severe and chronic neck pain secondary to cervical DDD and spondylosis with facet arthropathy without myelopathy presents today for evaluation s/p R MBB C4-C5, C5-C6 #2. Pt states she experienced 90 % pain relief x 24 hrs s/p procedure. Pain level is provoked at 6 /10 in intensity, constant, localized in the R lower cervical spine, sharp in character w shooting towards the RUE. Pain is provoked by rotation, lateral flexion. Pain is alleviated with PT in 2021, heat, medications, topical, repositioning and rest. Oswestry axial pain score of 26. Interventional pain procedures completed include R MBB C4-C6 x2 Patient is currently on Flexeril, Ibu, Voltaren gel Patient denies any side effects of the medication(s), denies excessive drowsiness or sleepiness, denies suicidal ideation and reports that the current pain medication is helping to control the pain and improve activities of daily living. Patient denies any motor or sensory deficits. Patient denies any fever or night sweats, denies any change in the bowel movements or urination. Physical Examination: -Constitutional: Cooperative. Not in acute distress . - Neurologic: Cranial nerve II to XII intact. No focal neurological deficits. - Psychatric: Alert & oriented x 3. Matching mood & appropriate affect. Judgment and insight intact. - Musculoskeletal: Cervical spine: Muscle bulk/ tone/ strength in the bilateral upper extremities normal Vertebral body tenderness to palpation over Spurling test positive Distraction test positive Facet loading test positive TTP on R C4-C5, C5-C6 Thoracic spine Muscle bulk / tone/ strength in the bilateral paraspinal muscles normal Vertebral body tender to palpation over Facet loading test positive TTP Lumbar spine: Motor bulk/ tone/ strength lower extremities , thigh and legs : 5/5 Deep tendon reflexes : Normal Knee Jerk. Normal Ankle Jerk . Vertebral body tenderness to palpation over Lumbar Facet Loading Test positive Straight Leg Raise: positive at 30 degrees right side/ left side Gaenslen's Test positive Sacral spine : Severe tenderness over the Sacroiliac joint: right side / left side Range of motion: Flexion of the lumbar spine <60 degrees Range of motion: Extension of the lumbar spine <20 degrees Gaenslen's Test positive R / L Ralph test: positive right side / left side Thigh Thrust Test positive R / L Sacral Thrust Test positive R/ L Assessment and plan: Chronic neck pain secondary to cervical DDD, spondylosis with facet arthropathy without myelopathy Recommendation of R RFA C4-C5, C5-C6. Pt exhibited optimal pain relief w prior MBB procedures. Risks, benefits of procedure discussed and pt verbalized understanding. Admits to anticoagulant use or medical history of diabetes. Protocol for discontinuation/ continuation of medications triston procedure discussed. Minimal anesthesia provided, if clinically indicated, consisting of Versed and Fentanyl. All questions answered. I have spent less than 30 minutes on patient care today. Dr Nina was available by phone for the evaluation of this patient. The time was used to review the medical records including relevant urine studies and Prescription history (MAPs), review of the available imaging, evaluation and examination of the patient, coordination of care with the medical staff and if applicable referring physicians, as well as creation of the medical record PQRS Narrative: Smoking Status Current every day smoker Hx Alcohol Use (MH) Yes: Rare Home Medications: Ambulatory Orders Cyclobenzaprine [Flexeril] 5 mg PO QAM PRN 10/25/21 Ibuprofen [Motrin Ib] 400 mg PO Q4H PRN 10/25/21 Diclofenac Sodium Gel [Voltaren Gel] 100 gm TOPICAL BID PRN 10/03/22 Controlled Substance Measures - Controlled Substance Measures Is patient prescribed a controlled substance at discharge?: No
== END ==
LOC: PNWHC3 09:00
PROVIDERS: ATTEND Specialist
DX: M50.321 Other cervical disc degeneration at C4-C5 level (principal); M50.322 Other cervical disc degeneration at C5-C6 level; M47.812 Spondylosis without myelopathy or radiculopathy, cervical region; F17.200 Nicotine dependence, unspecified, uncomplicated; G89.29 Other chronic pain
CPT/HCPCS: 99211

== ENCOUNTER 2023-04-10 12:24 | Day surgery (SDC) | payer BC ==
[2023-04-06 12:20] VITALS: BMI 32.9
[~2023-04-10 12:24] MED LIST changes: +LIDOCAINE 1% (10MG/ML) FOR IV START INTRADERMA PRN
[2023-04-10 12:36] VITALS: TEMP 97.7
[2023-04-10] MEDS ORDERED: fentaNYL (PF) 50 MCG/ML 2 ML AMP ONE (12:57)
[2023-04-10] MEDS ORDERED: MIDAZOLAM 2 MG/2 ML VIAL ONE (12:57)
[2023-04-10] MEDS ORDERED: ROPIVACAINE 5 MG/ML 20 ML AMPULE ONE (13:03)
[2023-04-10] MEDS ORDERED: methylPREDNISolone ACETATE 40 MG/ML 1 ML VIAL ONE (13:03)
--- NOTE | 2023-04-10 13:21 | P.PCN ---
Date of Procedure: 04/10/23 Procedure(s) Performed: PREOPERATIVE DIAGNOSIS: Cervical spondylosis with Facet Arthropathy without myelopathy. POSTOPERATIVE DIAGNOSIS: Cervical spondylosis with Facet Arthropathy without myelopathy. PROCEDURES: Radiofrequency thermocoagulation, Right C4, C5, C6 medial branch with Fluroscopy [place](fluoroscopy was available in Radiology department ) (to denervate the facet joint at right C4- 5 , C5- 6 ) ANESTHESIA: Monitored anesthesia care as per anesthesia department . EBL: Minimal PROCEDURE INDICATION: The patient with neck pain secondary to cervical arthropathy who had more than 50% relief of her pain with previous diagnostic cervical medial branch block. PROCEDURE DESCRIPTION / TECHNIQUE: The patient was seen and identified in the preoperative area. Risks, benefits, complications, and alternatives were discussed with the patient, the patient agreed to proceed with the procedure and signed the consent. IV was started. Vital signs remained stable throughout the procedure. Patient was taken to the OR and time out was completed. The patient was placed in the lateral position ( right side up ) on the procedure table. The cervical area was prepped and draped in the usual sterile fashion. Critical pause was taken. Vital signs were closely monitored during the procedure. Conscious sedation was used during the procedure to decrease patients anxiety. Using cross-table lateral fluoroscopy, the centroid of the trapezoid of right C4, C5, and C6 were identified, marked, and localized with 1% lidocaine. Subsequently, a 20 [id number]-[id number] radiofrequency cannula with a 10-mm active tip was advanced guided by fluoroscopy to the centroid of the trapezoid of right C4, C5, and C6 . Needle tip position was confirmed at the centroid of the trapezoids of right C4, C5, and C6 with anteroposterior fluoroscopy. Each site then underwent sensory testing at 50 Hz and 0 to 1 volt and motor testing at 2 Hz and 0 to 3 volt with local stimulation, but no radicular symptoms down the arm. Thereafter each sites underwent radiofrequency thermocoagulation at 80 degrees celsius for 90 seconds after injecting 0.5 ml of PF Ropivacaine 0.5 %. After thermocoagulation, 1 ml of the block solution containing Depo-Medrol 40 mg and 3 mL of preservative-free normal saline was injected at the right C4, C5, and C6 levels after negative aspiration of CSF and blood and with no paresthesias. Cannulas were retracted while injecting lidocaine 1% until the needle is out. Skin was cleansed and bandages were applied. COMPLICATIONS: No acute complications. DISPOSITION / PLANS: The patient was placed in a supine position and transferred to the recovery area in a stable condition for observation and was discharged from the recovery room after meeting discharge criteria. Home discharge instructions given to the patient by the staff. The patient was reexamined prior to discharge. The patient will schedule a follow up in the clinic in 2-4 weeks.
[2023-04-10] MEDS ORDERED: IV FLUID CONTINUATION 650 ML IV ONE (13:30)
--- NOTE | 2023-04-10 13:31 | FL ---
Fluoroscopy History: Cerv Rad freq 8sec fluoro time [id number] DAP
[2023-04-10 13:53] VITALS: BP 147/84; PULSE 65; RESP 16
== END 2023-04-10 13:50 | disposition home or self-care (01) ==
LOC: ORPAIN 12:24
PROVIDERS: ATTEND Specialist
DX: M47.812 Spondylosis without myelopathy or radiculopathy, cervical region (principal); F17.210 Nicotine dependence, cigarettes, uncomplicated
CPT/HCPCS: 64633; 64634; J2250; J1030; J3010; J2795

== ENCOUNTER → 2023-05-07 | Outpatient (CLI) | payer BC ==
[2023-05-07 09:42] VITALS: BP 129/82; PULSE 74; RESP 98; TEMP 98
--- NOTE | 2023-05-07 13:13 | P.PAINPG ---
PQRS Measure Charge Sheet Comment: A 52 yr old female with a history of severe and chronic neck pain secondary to cervical DDD and spondylosis with facet arthropathy without myelopathy presents today for evaluation s/p R RFA C4-C5, C5-C6. Pt states she experienced 95 % pain relief s/p procedure. Pain level is provoked at 7 /10 in intensity, constant, localized in the R lower cervical spine, sharp in character w shooting towards the RUE. Pain is provoked by rotation, lateral flexion. Pain is alleviated with PT in 2021, heat, medications, topical, repositioning and rest. Oswestry axial pain score of 18. Interventional pain procedures completed include R RFA C4-C6 Patient is currently on Flexeril, Ibu, Voltaren gel Patient denies any side effects of the medication(s), denies excessive drowsiness or sleepiness, denies suicidal ideation and reports that the current pain medication is helping to control the pain and improve activities of daily living. Patient denies any motor or sensory deficits. Patient denies any fever or night sweats, denies any change in the bowel movements or urination. Physical Examination: -Constitutional: Cooperative. Not in acute distress . - Neurologic: Cranial nerve II to XII intact. No focal neurological deficits. - Psychatric: Alert & oriented x 3. Matching mood & appropriate affect. Judgment and insight intact. - Musculoskeletal: Cervical spine: Muscle bulk/ tone/ strength in the bilateral upper extremities normal Vertebral body tenderness to palpation over R taut bands w twitch response over C5-C6, C6-C7, C7-T1 Spurling test positive Distraction test positive Facet loading test positive TTP Thoracic spine Muscle bulk / tone/ strength in the bilateral paraspinal muscles normal Vertebral body tender to palpation over Facet loading test positive TTP Lumbar spine: Motor bulk/ tone/ strength lower extremities , thigh and legs : 5/5 Deep tendon reflexes : Normal Knee Jerk. Normal Ankle Jerk . Vertebral body tenderness to palpation over Lumbar Facet Loading Test positive Straight Leg Raise: positive at 30 degrees right side/ left side Gaenslen's Test positive Sacral spine : Severe tenderness over the Sacroiliac joint: right side / left side Range of motion: Flexion of the lumbar spine <60 degrees Range of motion: Extension of the lumbar spine <20 degrees Gaenslen's Test positive R / L Ralph test: positive right side / left side Thigh Thrust Test positive R / L Sacral Thrust Test positive R/ L Assessment and plan: Chronic neck pain secondary to cervical DDD, spondylosis with facet arthropathy without myelopathy Recommendation of R TPIs C5- T1. May need a series of injections for optimal pain relief. Risks, benefits of procedure discussed and pt verbalized understanding. Admits to anticoagulant use or medical history of diabetes. Protocol for discontinuation/ continuation of medications triston procedure discussed. Minimal anesthesia provided, if clinically indicated, consisting of Versed and Fentanyl. All questions answered. I have spent less than 30 minutes on patient care today. Dr Nina was available by phone for the evaluation of this patient. The time was used to review the medical records including relevant urine studies and Prescription history (MAPs), review of the available imaging, evaluation and examination of the patient, coordination of care with the medical staff and if applicable referring physicians, as well as creation of the medical record PQRS Narrative: Smoking Status Current every day smoker Hx Alcohol Use (MH) Yes: Rare Home Medications: Ambulatory Orders Cyclobenzaprine [Flexeril] 5 mg PO QAM PRN 10/25/21 Ibuprofen [Motrin Ib] 400 mg PO Q4H PRN 10/25/21 Diclofenac Sodium Gel [Voltaren Gel] 100 gm TOPICAL BID PRN 10/03/22 Controlled Substance Measures - Controlled Substance Measures Is patient prescribed a controlled substance at discharge?: No
== END ==
LOC: PNWHC3 09:10
PROVIDERS: ATTEND Specialist
DX: M50.322 Other cervical disc degeneration at C5-C6 level (principal); M50.323 Other cervical disc degeneration at C6-C7 level; M50.33 Other cervical disc degeneration, cervicothoracic region; M47.812 Spondylosis without myelopathy or radiculopathy, cervical region; F17.200 Nicotine dependence, unspecified, uncomplicated; G89.29 Other chronic pain
CPT/HCPCS: 99211

== ENCOUNTER 2023-06-02 11:04 | Day surgery (SDC) | payer BC ==
[~2023-06-02 11:04] MED LIST changes: -LIDOCAINE 1% (10MG/ML) FOR IV START INTRADERMA PRN; +ROPIVACAINE 5MG/ML 20ML VIAL ONE; +TRIAMCINOLONE ACETONIDE 40 MG/ML 1 ML VIAL ONE
[2023-06-02 11:32] VITALS: RESP 16; TEMP 97.7
--- NOTE | 2023-06-02 12:42 | P.PCN ---
Date of Procedure: 06/02/23 Description of Procedure: Pre and postop diagnosis: Myofascial pain syndrome Procedure: Trigger point injections X 9 Muscle group X right side trapezius, and right levator scapulae, right splenius capitis muscle, and right-sided rhomboids Surgeon: Jones Baird Anesthesia: None Complications: None Estimated blood loss: None Specimen removed: None Procedure indications: Patient had a history of myofascial pain syndrome. Pat ient tried conservative therapy. Came here for intervention procedure for better pain relief. Procedure description: Patient was seen and identified in the holding area risk benefits competitions alternative discussed with the patient. Patient agreed to proceed for the procedure signed the consent. Patient taken to the procedure area. Timeout was completed. A total number of 9 - trigger point area was marked with a sterile marker. After ChloraPrep used to clean the area. Critical pause was taken. Using 25-gauge 1-1/[address] half [address]. Needle entered in each market site one mL of block solution injected at each level. The block solution containing 9 ml of 0.5% preservative-free ropivacaine with Kenlog 40 MG. Needle removed intact skin cleaned and Band-Aid applied. Patient tolerated the procedure well. Disposition: Patient discharge home after meeting the discharge criteria from the recovery. Patient scheduled to follow up with the pain clinic in 4 weeks for follow-up visit.
[2023-06-02 12:59] VITALS: BP 102/68; PULSE 74
== END 2023-06-02 13:00 | disposition home or self-care (01) ==
LOC: ORPAIN 11:04
DX: M79.18 Myalgia, other site (principal); F17.210 Nicotine dependence, cigarettes, uncomplicated; Z79.899 Other long term (current) drug therapy; Z90.710 Acquired absence of both cervix and uterus; Z98.890 Other specified postprocedural states
CPT/HCPCS: 20553; J3301; J2795

== ENCOUNTER → 2024-01-22 | Outpatient (CLI) | payer BC ==
--- NOTE | 2024-01-26 06:21 | CTL ---
EXAMINATION TYPE: CT Low Dose Lung DATE OF EXAM ORDERED: 01/22/2024 HISTORY: Long-term tobacco use. Lung cancer screening CT DLP: 82.[address] CTDI: 2.4 mGy Automated exposure control for dose reduction was used. SCREENING VISIT: Baseline COMPARISON: None TECHNIQUE: Low dose computed tomography scan was performed through the chest at 1 mm thick sections a nd reconstructed images in multiple planes at 1 mm and [address] DIAGNOSTIC QUALITY: Satisfactory FINDINGS: Nodules: RUL: There is 3 to 4 mm posterior-inferior right upper lobe pulmonary nodule axial image 129. RML: None. RLL: None. SHANNON: None. LLL: None. No greater than 6 mm noncalcified pulmonary nodules. LUNGS: COPD: Severity: None Fibrosis: Severity: None Lymph nodes: None Other findings: None RIGHT PLEURAL SPACE: Effusion: None Calcification: None Thickening: None Pneumothorax: None LEFT PLEURAL SPACE: Effusion: None Calcification: None Thickening: None Pneumothorax: None HEART: Heart Size: Normal Coronary Calcification: None Pericardial Effusion: None OTHER FINDINGS: Upper abdomen: None Bony thorax: None Supraclavicular region: None Other: None IMPRESSION: No greater than 6 mm noncalcified pulmonary nodules. CT LUNG RAD AND CT CHEST RECOMMENDATION: Lung-Rad 2 Benign Appearance or Behavior: Continue annual sc reening with LDCT in 12 months. S Modifier (other clinically significant findings): None
== END | disposition home or self-care (01) ==
LOC: RADCTMAIN 08:18
PROVIDERS: ATTEND Family Medicine
DX: Z12.2 Encounter for screening for malignant neoplasm of respiratory organs (principal); F17.210 Nicotine dependence, cigarettes, uncomplicated; R91.8 Other nonspecific abnormal finding of lung field
CPT/HCPCS: 71271

== ENCOUNTER → 2024-01-22 | Outpatient (CLI) | payer BC ==
--- NOTE | 2024-01-25 13:39 | MM ---
Reason for Exam: Screening (asymptomatic). Patient History: Menarche at age 11. First Full-Term at age 26. Hysterectomy at age 48. Risk Values: Aleida 5 year model risk: 1.3%. NCI Lifetime model risk: 9.3%. Tissue Density: The breasts are almost entirely fatty. Findings: Analyzed By CAD. There is no suspicious group of microcalcifications or new suspicious mass in either breast. Overall Assessment: Benign, BI-RAD 2 Management: Screening Mammogram of both breasts in 1 year. . Patient should continue monthly self-breast exams. A clinical breast exam by your physician is recommended on an annual basis. This exam should not preclude additional follow-up of suspicious palpable abnormalities. Note on Aleida scores and lifetime risk: 1. A Aleida score greater than 3% is considered moderate risk. If this is the case, consider specialist referral to assess eligibility for a risk reducing agent. 2. If overall lifetime risk for the development of breast cancer is 20% or higher, the patient may qualify for future screening with alternating mammogram and breast MRI. Electronically signed and approved by: Jordan Lassiter D.O. Radiologis
== END | disposition home or self-care (01) ==
LOC: RADMAMWWP 09:39
PROVIDERS: ATTEND Family Medicine
DX: Z12.31 Encounter for screening mammogram for malignant neoplasm of breast (principal)
CPT/HCPCS: 77063; 77067